=== PATIENT | male | born 1945 | race Caucasian/White ===

== ENCOUNTER 2017-02-05 17:08 | Inpatient (IN) | payer MEDICARE, OTHER ==
[~2017-02-05] VITALS: Ht 182.9 cm; Wt 103.6 kg
[2017-02-05 17:14] VITALS: Ht 182.9 cm; Wt 103.6 kg
[2017-02-05] MEDS ORDERED: KETOROLAC 15 MG INJ IV STA (17:34)
[2017-02-05] MEDS ORDERED: SOD CHLORIDE 0.9% 1,000 ML IV STA (17:34)
[2017-02-05] MEDS ORDERED: ASPIRIN 81 MG TAB PO ONE (18:00)
[2017-02-05] MEDS ORDERED: [UNRECOGNIZED DRUG - OTHER] IV ONE (18:00)
[2017-02-05] MEDS ORDERED: PYRIDOSTIGMINE 60 MG TAB PO ONE (18:00)
[2017-02-05 18:02] LABS: BASOPHILS % 0.3 % (0.0-2.0); EOSINOPHILS # 0.1 10^3/ul (0.0-0.5); EOSINOPHILS % 1.9 % (0.0-7.0); HEMATOCRIT 43.3 % (42.0-52.0); HEMOGLOBIN 14.9 g/dl (14.0-18.0); LYMPHOCYTES # 1.4 10^3/ul (0.8-2.9); LYMPHOCYTES % 24.2 % (15.0-51.0); MEAN CORPUSCULAR HGB CONC 34.4 g/dl (32.0-37.0); MEAN CORPUSCULAR VOLUME 90.2 fl (82.0-101.0); MEAN PLATELET VOLUME 8.8 fl (7.4-10.4); MONOCYTE # 0.7 10^3/ul (0.3-0.9); MONOCYTES % 12.3 % (0.0-11.0); NEUTROPHIL # 3.6 10^3/ul (1.6-7.5); PLATELET COUNT 197 10^3/UL (140-415); RED CELL DISTRIBUTION WIDTH 13.6 % (11.5-14.5); WHITE BLOOD COUNT 5.9 10^3/ul (4.8-10.8)
[2017-02-05 18:32] LABS: AADO2 Arterial 76.8 mmHg (7.0-24.0); Allen Test ACCEPTAB; Arterial Base Excess 3.6 mmol/L (-3.0-3); Arterial COHb 0.2 % (0.0-3.0); Arterial HCO3 29.1 mmol/L (22.0-26.0); Arterial MetHb 0.3 % (0.0-1.5); Arterial Total Hemglobin 15.3 g/dl (12.0-18.0); MODE NASAL CANNULA
[2017-02-05 18:36] LABS: INR 0.89; PT RATIO 0.9
[2017-02-05 18:40] LABS: ALBUMIN 3.8 g/dl (3.3-4.9); ALBUMIN/GLOBULIN RATIO 1.18; BILIRUBIN,INDIRECT 0.3 mg/dl (0-1.1); BILIRUBIN,TOTAL 0.3 mg/dl (0.2-1.3); CALCIUM 9.2 mg/dl (8.4-10.2); CREATININE 0.9 mg/dl (0.61-1.24); POTASSIUM 4.5 mmol/L (3.5-5.1)
--- NOTE | 2017-02-05 18:42 | ERA ---
ER Documentation Chief Complaint Date/Time DATE: 02/05/17 TIME: 18:32 Chief Complaint RA run CP x 3 days, vss, NSR HPI 71-year-old man brought in by EMS from home for complaints of substernal sharp chest pain radiating to the left arm. He does have a history of [place] status post balloon angioplasty. He denies shortness of breath, no cough, no fevers or chills, no vomiting or diarrhea. 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 He states he usually gets periorbital Botox injections, last dose about 4 months ago. Patient was transported here by EMS without further complications. ROS All systems reviewed and are negative except as per history of present illness. Allergies Allergies: Coded Allergies: codeine (Verified Allergy, Unknown, NAUSEA /VOMIT, 02/05/17) PMhx/Soc Ocular myasthenia gravis, hypertension, coronary artery disease status post SC and balloon angioplasty (patient denies stents), pacemaker, prostate cancer History of Surgery: Yes (pace maker , angiogram, gallbladder) Hx Cardiac Disorders: Yes (htn, SC) Hx Miscellaneous Medical Probl: Yes (myasthenia gravis ) Hx Alcohol Use: No Hx Substance Use: No Hx Tobacco Use: No Smoking Status: Never smoker FmHx Family History: No diabetes Physical Exam Vitals Vital Signs Date Time Temp Pulse Resp B/P Pulse Ox O2 Delivery O2 Flow Rate FiO2 02/05/17 18:19 65 16 110/72 98 Nasal Cannula 2.0 02/05/17 17:14 98.1 80 20 106/60 95 Physical Exam GENERAL: Well-developed, well-nourished, appears dehydrated, afebrile HEENT: Bilateral ptosis and orbicularis oculi weakness, pink conjunctiva, pupils equal round reactive to light, no goiter, no cervical spine deformity NEURO: Alert and oriented 3, pupils equal round reactive to light, no facial asymmetry, able to move upper and lower extremities without difficulty CARDIAC: Regular rate and rhythm, no murmurs rubs or gallops LUNGS: Clear bilaterally no wheezing crackles or stridor ABDOMEN: Soft nontender, no guarding, no rigidity, no rebound, no psoas sign no obturator sign. Normoactive bowel sounds SKIN: Warm and dry to touch, no abrasions, contusions, or hematomas, no lacerations, no ecchymosis, no target lesions, and without ulcers EXTREMITIES: No clubbing cyanosis or edema, calves are bilaterally symmetrical, no Homans sign, no popliteal cord sign. Distal pulses equal and bilateral PSYCH: Normal affect without agitation or irritability Result Diagram: 02/05/17 1740 02/05/17 1740 Results 24 hrs Laboratory Tests Test 02/05/17 17:40 02/05/17 18:17 White Blood Count 5.910^3/ul Red Blood Count 4.8010^6/ul Hemoglobin 14.9g/dl Hematocrit 43.3% Mean Corpuscular Volume 90.2fl Mean Corpuscular Hemoglobin 31.0pg Mean Corpuscular Hemoglobin Concent 34.4g/dl Red Cell Distribution Width 13.6% Platelet Count 90774^3/UL Mean Platelet Volume 8.8fl Neutrophils % 61.0% Lymphocytes % 24.2% Monocytes % 12.3% Eosinophils % 1.9% Basophils % 0.3% Nucleated Red Blood Cells % 0.0/100WBC Neutrophils # 3.610^3/ul Lymphocytes # 1.410^3/ul Monocytes # 0.710^3/ul Eosinophils # 0.110^3/ul Basophils # 0.010^3/ul Nucleated Red Blood Cells # 0.010^3/ul Prothrombin Time 12.0Sec Prothrombin Time Ratio 0.9 INR International Normalized Ratio 0.89 Sodium Level 137mmol/L Potassium Level 4.5mmol/L Chloride Level 93mmol/L Carbon Dioxide Level 31mmol/L Anion Gap 18 Blood Urea Nitrogen 19mg/dl Creatinine 0.90mg/dl Glucose Level 86mg/dl Calcium Level 9.2mg/dl Total Bilirubin 0.3mg/dl Direct Bilirubin 0.00mg/dl Indirect Bilirubin 0.3mg/dl Aspartate Amino Transf (AST/SGOT) 35IU/L Alanine Aminotransferase (ALT/SGPT) 47IU/L Alkaline Phosphatase 81IU/L Troponin I 0.019ng/ml B-Type Natriuretic Peptide 363PG/ML Total Protein 7.0g/dl Albumin 3.8g/dl Globulin 3.20g/dl Albumin/Globulin Ratio 1.18 Lipase 22U/L Blood Gas Specimen Source Blood arterial Arterial Blood Date Drawn 02/05/2017 6:24:50 PM Arterial Blood pH (Temp corrected) 7.409 Arterial Blood pCO2 (Temp correct) 47.1mmhg Arterial Blood pO2 (Temp corrected) 67.3mmHG Arterial Blood HCO3 29.1mmol/L Arterial Blood Base Excess 3.6mmol/L Arterial Blood Oxygen Saturation 93.5mmHG Arnie Test ACCEPTAB Arterial Blood Gas Puncture Site Right Radial Arterial Blood Carboxyhemoglobin 0.2% Arterial Blood Methemoglobin 0.3% Blood Gas A-a O2 Differential 76.8mmHg Oxyhemoglobin Percent 93.0% Total Hemoglobin 15.3g/dl Blood Gas Temperature 37.0C Blood Gas Modality NASAL CANNULA FiO2 28.0% Blood Gas Notified Whom M.D. Blood Gas Notified Time 02/05/2017 6:32:29 PM Current Medications Medications (Trade) Dose Ordered Sig/Antonia Route PRN Reason Start Time Stop Time Status Last Admin Dose Admin Sodium Chloride (NS) 1,000 ml @ 1,000 mls/hr Q1H STAT IV 02/05/17 17:34 02/05/17 18:33 DC 02/05/17 18:39 Aspirin (Aspirin) 324 mg ONCE ONCE PO 02/05/17 18:00 02/05/17 18:14 DC 02/05/17 18:16 Ketorolac Tromethamine (Toradol) 15 mg ONCE STAT IV 02/05/17 17:34 02/05/17 18:14 DC 02/05/17 18:17 Pyridostigmine [place] (Mestinon) 60 mg ONCE ONCE PO 02/05/17 18:00 02/05/17 18:00 DC Edrophonium Chloride (Enlon) 1 mg ONCE ONCE IV 02/05/17 18:00 02/05/17 18:00 DC Morphine Sulfate (morphine) 4 mg ONCE STAT IV 02/05/17 19:44 02/05/17 19:46 DC 02/05/17 19:50 Procedures/MDM IV line was established patient was placed on panel monitor rhythm strip revealed a sinus rhythm at about 60 bpm. Patient was afebrile. For complaints of chest pain I administered aspirin 324 mg p.o. for cardioprotective measures. He also received Toradol 15 mg IV 1 for pain. Patient also received 1 L normal saline intravenously, morphine 4 mg IV, Zofran 4 mg IV ABG on low-flow oxygen revealed a pH of 7.41, PCO2 47, PO2 67. Mild hypercapnia. One view chest x-ray performed, read by me there is a pacemaker in the left chest, no acute infiltrates, no pneumothorax. EKG performed, read by me revealed a paced rhythm at 63 bpm, left axis deviation , no concerning ST elevations or depressions noted. CBC was normal, electrolytes normal, liver function tests normal, troponin negative. BNP low. Departure Diagnosis: Primary Impression: Chest pain Qualified Code: R07.9 - Chest pain, unspecified type Additional Impressions: Myasthenia gravis with exacerbation, ocular Dehydration Condition: VISHNU Linda MD Feb 05, 2017 18:42
[2017-02-05 18:51] LABS: TROPONIN-I 0.019 ng/ml (0.00-0.12)
--- NOTE | 2017-02-05 19:20 | RADRPT ---
PROCEDURE: XR Chest. CLINICAL INDICATION: Abdominal pain TECHNIQUE: Anterior chest x-ray. COMPARISON: None. FINDINGS: Dual lead left cardiac pacemaker demonstrates satisfactory position. The lungs are clear. No pleural effusion identified. There is no evidence of pneumothorax. The cardiomediastinal silhouette is unremarkable. The soft tissues are normal. No free air under the hemidiaphragms. Osseous structures are unremarkable. IMPRESSION: 1. No acute disease is seen in the chest. 2. No evidence of bowel perforation. RPTAT: QQ .Brad Serrano MD, MD Date Time Electronically viewed and signed by .Brad Serrano MD, on 02/05/2017 19:20 .M/
[2017-02-05] MEDS ORDERED: morphine 4 MG/ML VIAL IV STA (19:44)
[2017-02-05] MEDS ORDERED: NACL 0.9% 3 ML SYG IV SCH (20:30)
[2017-02-05] MEDS ORDERED: ONDANSETRON 4 MG INJ IV PRN (20:30)
[2017-02-05] MEDS ORDERED: AMLO5TAB4 PO (20:42)
[2017-02-05] MEDS ORDERED: ASPI81TA3 PO (20:43)
[2017-02-05] MEDS ORDERED: CARV3.12 PO (20:43)
[2017-02-05] MEDS ORDERED: LISI10TA2 PO (20:43)
[2017-02-05] MEDS ORDERED: RIVA20TA PO (20:43)
[2017-02-05] MEDS ORDERED: ALPR1TAB7 PO ×2 (20:44→22:32)
[2017-02-05] MEDS ORDERED: ZOLP10TA PO (20:44)
[2017-02-05 21:05] VITALS: PULSE 71
[2017-02-05 22:00] VITALS: BP 128/78; RESP 19
[2017-02-05] MEDS ORDERED: LISI40TA9 PO (22:32)
[2017-02-05] MEDS ORDERED: NITR0.4T6 SL (22:32)
[2017-02-05] MEDS ORDERED: PANT40TA4 PO (22:32)
[2017-02-05] MEDS ORDERED: CARV12.579 PO (22:32)
[2017-02-05] MEDS ORDERED: DOCU100T9 PO (22:32)
[2017-02-05] MEDS ORDERED: ALPR2TAB7 PO (22:36)
[2017-02-05] MEDS ORDERED: AMLO-147 PO (22:37)
[2017-02-05] MEDS: SOD CHLORIDE 0.9% 1,000 ML IV SCH (22:47)
[2017-02-05] MEDS: ALPRAZOLAM 1 MG TAB PO PRN (22:47)
[2017-02-05] MEDS ORDERED: ZOLPIDEM 5 MG TAB PO PRN (23:00)
[2017-02-06] VITALS (14 sets, daily range): BP systolic 107–136; BP diastolic 61–77; PULSE 59–111; RESP 16–20
--- NOTE | 2017-02-06 04:10 | HP ---
Date/Time of Note Date/Time of Note DATE: 02/06/17 TIME: 03:07 Assessment/Plan VTE Prophylaxis VTE Prophylaxis Intervention: SCD's Lines/Catheters IV Catheter Type (from Nrs): Saline Lock Assessment/Plan Chief Complaint/Hosp Course This is a 71-year-old male being admitted to the telemetry floor for: #1 chest pain: Rule out ACS. Will trend troponins. Check 2D echocardiogram. Consult cardiology. Morphine as needed, I will at this time hold his beta- kimberly for the time being until we can confirm his myasthenia gravis status. EKG paced rhythm at 63 bpm, left axis deviation, no concerning ST elevations or depressions noted. His BNP is slightly elevated at 363 however there are no signs of any clinical volume overload at this time, again we will obtain a 2D echocardiogram to further evaluate #2 confusion: I do feel the patient is confused and providing a poor history of the past few days. In light of my physical exam where he does report feeling weak, and he also reported falling off a ladder and there is a bruising on his right eyelid I would like to get a CAT scan of the abdomen. I will also start him on Mestinon for the time being until he can be seen by neurology regarding his myasthenia gravis. Further imaging studies may need to be done, though there is also possibility this patient may be displaying symptoms of memory loss secondary to possibly underlying dementia/Alzheimer's. #3 ocular myasthenia gravis: Patient does have abnormal eye movements, however he also does display an irregular lip behavior when he speaking and patient also reports that he also feels weak a lot of times. He is not on any oral medications on his medical reconciliation he denies taking any medications for his myasthenia gravis orally. He does reports that he gets Botox injections in his eye. At the current time though I do not feel like he is in acute myasthenic crisis, I do feel that with his poor history that he has provided at the current time I will continue the Mestinon that was provided to him in the ED. I will give him for a period of 1 day until he can have neurology see the patient.. I will obtain a CAT scan of the head. I will also continue to monitor his respiratory status. He did have an ABG performed in the ED that did show a PO2 of 67 for which she was put on a BiPAP with improvement in that arm was put on nasal cannula. Will continue to monitor his respiratory status and order ABG in the a.m. The patient denies smoking he does have an elevated bicarb and ABG which could put him in the picture of having COPD however he denies that history. #4 atrial fibrillation: At the current time he is not paced rhythm on his EKG and telemetry. At the current time we will continue his Xarelto. #5 hypertension: Continue patient's home medications however we will hold the beta-kimberly at this time. #6 social condition: Patient does report that he does not have anyone in terms of immediate family as his and his son have as well as his siblings and parents. He lives by himself. At the current time I will consult social work to see if we can help him gain access to an assisted living facility or [facility]. We will also try to obtain past medical records if possible. #7 DVT and GI prophylaxis: SCDs, Protonix Further treatment strategy will be implemented as per the clinical course Problems: HPI/ROS Admit Date/Time Admit Date/Time Feb 05, 2017 at 19:14 Hx of Present Illness Chief complaint: Chest pain This is a 71-year-old man brought in by EMS from home for complaints of substernal sharp chest pain radiating to the left arm. History was obtained from the patient well as from the ED physician documentation, there appears to be some discrepancies in the story which leads me to believe this patient is a poor historian. Apparently the patient does does have a history of [place] status post balloon angioplasty. He denies shortness of breath, no cough, no fevers or chills, no vomiting or diarrhea. 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 He states he usually gets periorbital Botox injections, last dose about 4 months ago. Patient was transported here by EMS without further complications. Upon further questioning from me patient states that he was on a ladder and fell off the ladder and then was taken to the hospital a few days ago and then he was sent to rehab. And was at rehab that he experienced chest pain and then was brought here. When asked which hospital he states [facility] however this appears to be his first admission here based on the EMR. He is not in any respiratory distress or struggling to verbalize during my examination, the patient does state that he does feel tired at times. When asked about if he is taking any medications orally for his myasthenia gravis he denies any, he does state that he takes some drops for his ocular myasthenia gravis however there are none of those medications are on his med reconciliation. Also of note patient is on beta-blockers on his med reconciliation which are known to exacerbate myasthenia gravis. At the current time though I do not feel that the patient is in a myasthenic crisis. Patient also states that he lives by himself his previously as well as his son. He does state that it is difficult for him to live with himself. And he would like to see if he can get into an assisted living. Allergies: Codeine Indications: See REHAN MICHEL Const: As per HPI Eyes : No pain discharge or redness or change in visual acuity ENT: No pain, sore throat, congestion, congestion, dysphagia or discharge Respiratory: As per HPI Cardiovascular: As per HPI GI : no change in appetite, abdominal pain, nausea, vomiting, diarrhea, constipation, or change in the color his stool Genitourinary: No dysuria, hematuria, flank pain , discharge or CVA tenderness Musculoskeletal: No joint pain, back pain, neck pain, restricted range of motion in neck or joints Skin: No rash, bruising or hives Neuro: As per HPI Endocrine: No polyuria, polydipsia, temperature intolerance Psych: No hallucination, depression, anxiety or suicidal ideation PMH/Family/Social Past Medical History Ocular myasthenia gravis?, Atrial fibrillation, hypertension, prostate cancer, previous history of [place], coronary artery disease Past Surgical History Right knee replacement, previous history of stenting and balloon angioplasty, pacemaker placement Family History Significant Family History: other (Mom: Brain tumor) Social History Alcohol Use: sober Smoking Status: Never smoker Drug Use: none Exam/Review of Systems Vital Signs Vitals Vital Signs Date Time Temp Pulse Resp B/P Pulse Ox O2 Delivery O2 Flow Rate FiO2 02/06/17 00:17 66 02/06/17 00:00 98.2 18 115/61 93 02/05/17 21:00 Nasal Cannula 2.0 Intake and Output 8/12/17 8/12/17 8/13/17 15:00 23:00 07:00 Intake Total 1000 ml Balance 1000 ml Exam Exam General: Patient was lying in bed sleeping on initial encounter and he was easily arousable. Patient was not displaying any respiratory distress and he was not having any difficulty forming sentences. HEENT: Atraumatic, normocephalic. The pupils are equal, round and reactive. Extraocular motor are intact, bruising at the right lower eyelid Neck: Supple with full range of motion. No rigidity or meningismus Chest: Nontender Lungs: Clear to auscultation bilaterally no crackles rales or wheezing Heart: Normal S1-S2, Regular rhythm and rate. Abdomen: Soft , nontender, nondistended , bowel sounds are present. No guarding no rebound tenderness , No masses or organomegaly. No costovertebral temporal angle mass Extremities: Normal to inspection, no edema no cyanosis Neurologic: Normal mental status, speech normal, cranial nerves II to XII intact , no focal weaknesses on exam. Patient is observed to blink his eyes and repetitive manner, he does have some irregular lip movement while speaking. Additional Comments PROCEDURE: XR Chest. CLINICAL INDICATION: Abdominal pain TECHNIQUE: Anterior chest x-ray. COMPARISON: None. FINDINGS: Dual lead left cardiac pacemaker demonstrates satisfactory position. The lungs are clear. No pleural effusion identified. There is no evidence of pneumothorax. The cardiomediastinal silhouette is unremarkable. The soft tissues are normal. No free air under the hemidiaphragms. Osseous structures are unremarkable. IMPRESSION: 1. No acute disease is seen in the chest. 2. No evidence of bowel perforation. RPTAT: QQ .Brad Serrano MD, MD Date Time Electronically viewed and signed by .Brad Serrano MD, on 02/05/2017 19: 20 .M/ CC: VISHNU SPRINGER MD EKG: paced rhythm at 63 bpm, left axis deviation, no concerning ST elevations or depressions noted. as per ed physician documentation. Labs Result Diagram: 02/05/17 1740 02/05/17 1740 Medications Medications Current Medications Sodium Chloride (NS) 1,000 ml @ 75 mls/hr [id number] IV Last administered on 02/05 22:47; Admin Dose 75 MLS/HR; Start 02/05/17 at 20:17 Ondansetron HCl (Zofran Inj) 4 mg Q6H PRN IV NAUSEA AND/OR VOMITING; Start 06/12 at 20:30 Morphine Sulfate (morphine) 2 mg Q4H PRN IV PAIN LEVEL 7-10; Start 02/05/17 at 20:30 Pantoprazole (Protonix Iv) 40 mg DAILY@06 IV ; Start 02/06/17 at 06:00 Alprazolam (Xanax) 2 mg Q8H PRN PO ANXIETY Last administered on 02/05/17 22:47 ; Admin Dose 2 MG; Start 02/05/17 at 23:00 Zolpidem Tartrate (Ambien) 10 mg HS PRN PO INSOMNIA Last administered on 23:39; Admin Dose 10 MG; Start 02/05/17 at 23:00 ZEN MARIN Feb 06, 2017 03:18
[2017-02-06] MEDS ORDERED: DOCUSATE SODIUM 100 MG CAP PO PRN (04:30)
[2017-02-06] MEDS ORDERED: ALPRAZOLAM 2 MG PO PRN (04:30)
[2017-02-06] MEDS ORDERED: PANTOPRAZOLE 40 MG INJ IV SCH (06:00)
[2017-02-06] MEDS: PYRIDOSTIGMINE 60 MG TAB PO SCH ×6 (06:01→21:35)
[2017-02-06 06:02] LABS: AADO2 Arterial 33.1 mmHg (7.0-24.0); Allen Test ACCEPTAB; Arterial Base Excess 4.2 mmol/L (-3.0-3); Arterial COHb 0.4 % (0.0-3.0); Arterial Fraction of Oxyhgb 91.9 % (93.0-99.0); Arterial HCO3 29.1 mmol/L (22.0-26.0); Arterial MetHb 0.2 % (0.0-1.5); Arterial Total Hemglobin 15.1 g/dl (12.0-18.0); MODE ROOM AIR
[2017-02-06 07:10] LABS: BASOPHILS % 0.2 % (0.0-2.0); EOSINOPHILS # 0.1 10^3/ul (0.0-0.5); EOSINOPHILS % 2.2 % (0.0-7.0); HEMATOCRIT 40.9 % (42.0-52.0); HEMOGLOBIN 13.6 g/dl (14.0-18.0); LYMPHOCYTES # 1.2 10^3/ul (0.8-2.9); LYMPHOCYTES % 21.1 % (15.0-51.0); MEAN CORPUSCULAR HGB CONC 33.3 g/dl (32.0-37.0); MEAN CORPUSCULAR VOLUME 90.1 fl (82.0-101.0); MEAN PLATELET VOLUME 8.9 fl (7.4-10.4); MONOCYTE # 0.6 10^3/ul (0.3-0.9); MONOCYTES % 9.5 % (0.0-11.0); NEUTROPHIL # 3.9 10^3/ul (1.6-7.5); NEUTROPHILS % 66.8 % (39.0-77.0); PLATELET COUNT 183 10^3/UL (140-415); RED BLOOD COUNT 4.54 10^6/ul (4.70-6.10); RED CELL DISTRIBUTION WIDTH 13.9 % (11.5-14.5); WHITE BLOOD COUNT 5.8 10^3/ul (4.8-10.8)
[2017-02-06 07:34] LABS: TROPONIN-I 0.025 ng/ml (0.00-0.12)
[2017-02-06 07:36] LABS: CK-MB 1.05 ng/ml (0.0-2.4)
[2017-02-06 07:47] LABS: ALBUMIN 3.2 g/dl (3.3-4.9); ALBUMIN/GLOBULIN RATIO 1.28; BILIRUBIN,INDIRECT 0.5 mg/dl (0-1.1); BILIRUBIN,TOTAL 0.5 mg/dl (0.2-1.3); CALCIUM 8.6 mg/dl (8.4-10.2); CHOL/HDL RATIO 2.6 RATIO; CREATININE 0.87 mg/dl (0.61-1.24); POTASSIUM 4.2 mmol/L (3.5-5.1); TOTAL PROTEIN 5.7 g/dl (6.1-8.1)
[2017-02-06 08:13] LABS: THYROID STIMULATING HORMONE 0.832 MIU/L (0.465-4.680)
[2017-02-06] MEDS: morphine 2 MG INJ IV PRN ×3 (08:19→17:51)
[2017-02-06] MEDS: ASPIRIN 81 MG TAB PO SCH (08:20)
[2017-02-06 08:40] LABS: ADD UMIC NO; UR ASCORBIC ACID NEGATIVE (NEGATIVE); UR BILIRUBIN (Dip) NEGATIVE (NEGATIVE); UR BLOOD (Dip) NEGATIVE (NEGATIVE); UR CLARITY CLEAR (CLEAR); UR COLOR YELLOW (YELLOW); UR GLUCOSE (Dip) NEGATIVE (NEGATIVE); UR KETONES (Dip) NEGATIVE (NEGATIVE); UR LEUKOCYTE ESTERASE (Dip) NEGATIVE Leu/ul (NEGATIVE); UR NITRITE (Dip) NEGATIVE (NEGATIVE); UR SPECIFIC GRAVITY (Dip) 1.008 (1.003-1.030); UR TOTAL PROTEIN (Dip) NEGATIVE (NEGATIVE); UR UROBILINOGEN (Dip) NEGATIVE (NEGATIVE)
[2017-02-06] MEDS: LISINOPRIL 20 MG TAB PO SCH (09:00)
[2017-02-06] MEDS: AMLODIPINE 10 MG TAB PO SCH (09:00)
[2017-02-06] MEDS: SOD CHLORIDE 0.9% 1,000 ML IV SCH ×2 (09:37→13:41)
[2017-02-06] MEDS: ALPRAZOLAM 1 MG TAB PO PRN ×2 (09:49→19:18)
--- NOTE | 2017-02-06 11:35 | RADRPT ---
PROCEDURE: CT Brain without. CLINICAL INDICATION: Fall from ladder, facial bruising. TECHNIQUE: A CT of the brain was performed on multidetector high-resolution CT scanner utilizing a xial sections from the skull base through the vertex without contrast. The scan was reviewed in sof t tissue brain and high frequency resolution bone algorithm windows. Images were reviewed on a high -resolution PACS workstation. One or more the following does reduction techniques were utilized: Aut omated exposure control, adjustment of the mA/ or kV according to patient's size, or use of iterativ e reconstruction technique. The exam CTDI = 50.61 mGy and the DLP = 817.78 mGy-cm. COMPARISON: None available. FINDINGS: The ventricles and sulci are mildly prominent indicative of volume loss. There is no intracranial h emorrhage, mass effect or midline shift. No abnormal intra-axial or extra-axial fluid collections a re seen. The mendez/white matter differentiation is preserved. There are mild scattered foci of hypoattenuation in the white matter, which are nonspecific in etiol ogy but likely reflect chronic small vessel ischemic changes. There are mild intracranial vascular calcifications consistent with atherosclerosis. The visualized paranasal sinuses are essentially diana ar. IMPRESSION: 1. No acute intracranial hemorrhage, transcortical infarction or mass effect. 2. Mild intracranial atherosclerosis and chronic small vessel ischemic changes. 3. Mild generalized cerebral volume loss. RPTAT: QQ .Delio Carver MD, MD Date Time Electronically viewed and signed by .Delio Carver MD, MD on 02/06/2017 11:35 .N/
[2017-02-06 13:11] LABS: TROPONIN-I 0.014 ng/ml (0.00-0.12)
[2017-02-06 13:14] LABS: CK-MB 1.17 ng/ml (0.0-2.4)
--- NOTE | 2017-02-06 15:21 | RADRPT ---
Echocardiogram Report Patient Name: BANDAR STUBBS Gender: Male Date: 1945 Study Date: 06-Feb-2017 Animal Feeder: Home [facility] Location: [id number] Ref. Physician: ZEN MARIN Quality: Adequate Procedures: Transthoracic echocardiogram with complete 2D, M-Mode, and doppler examination. Indications: Chest Pain. 2D/M Mode Doppler Measurement Value Normal Ranges Measurement Value Normal Ranges LVIDd 2D 4.7 3.5 - 5.6 cm MAGALI Vmax 1.0 cm2 LVIDs 2D 3.5 2.1 - 4.1 cm AV Peak Phong 2.2 m/sec FS 2D 24.8 % AV Peak PG 20.0 mmHg LVPWd 2D 1.5 0.6 - 1.1 cm LVOT Peak Phong 0.9 m/sec IVSd 2D 1.5 0.6 - 1.1 cm LVOT Peak PG 3.0 mmHg IVS/LVPW 2D 1.0 MV E Peak Phong 0.8 m/sec AoR Diam 2D 3.3 2.0 - 3.7 cm MV A Peak Phong 1.0 m/sec LA/Ao 2D 1 0 - 1 MV E/A 0.8 EDV 2D 104.0 cm3 MV Decel Time 292 msec ESV 2D 44.4 cm3 MV E/A 0.8 LA Dimen 2D 4.1 2.3 - 4.0 cm TR Peak Phong 2.3 m/sec LVOT Diam 1.8 cm TR Peak PG 21.0 mmHg LVOT Area 2.5 cm2 RVSP 29.0 mmHg Findings Left Ventricle: Normal left ventricular cavity size. Moderate concentric left ventricular hypertrophy. Mild global left ventricular systolic dysfunction. Ejection fraction is visually estimated at 45 %. Tissue Doppler/Mitral Doppler indices are consistent with impaired relaxation (Stage I diastolic dysfunction). Right Ventricle: Normal right ventricular size. Normal right ventricular systolic function. Pacemaker right heart. Left Atrium: There is mild enlargement of left atrium. Right Atrium: The right atrium is normal in size. Mitral Valve: Mitral valve leaflets appear moderately thickened. Mild mitral annular calcification. Trace mitral regurgitation. Aortic Valve: Aortic sclerosis without stenosis. Tricuspid Valve: Normal appearance of the tricuspid valve. Estimated peak PA systolic pressure 29 mmHg. There is mild tricuspid regurgitation. Pulmonic Valve: Pulmonic valve not well visualized. There is trace pulmonic regurgitation. Pericardium: Normal pericardium with no significant pericardial effusion. Aorta: Normal aortic root. IVC: Normal size and poor respiratory collapse consistent with elevated right atrial pressure. Conclusions 1.Normal left ventricular cavity size. Moderate concentric left ventricular hypertrophy. Mild global left ventricular systolic dysfunction. Ejection fraction is visually estimated at 45 %. Tissue Doppler/Mitral Doppler indices are consistent with impaired relaxation (Stage I diastolic dysfunction). 2.Normal right ventricular size. Normal right ventricular systolic function. Pacemaker right heart. 3.Mitral valve leaflets appear moderately thickened. Mild mitral annular calcification. Trace mitral regurgitation. 4.Aortic sclerosis without stenosis. 5.Normal appearance of the tricuspid valve. Estimated peak PA systolic pressure 29 mmHg. There is mild tricuspid regurgitation. 6.Normal pericardium with no significant pericardial effusion. Electronically Signed By: Francisco Correa 06-Feb-2017 15:20:38 -0700 Patient Name: BANDAR STUBBS Study Date: 06-Feb-2017 [id number]
--- NOTE | 2017-02-06 15:52 | CONS ---
Date/Time of Note Date/Time of Note DATE: 02/06/17 TIME: 15:48 Assessment/Plan Assessment/Plan Additional Assessment/Plan Atypical chest pain CAD s/p MS s/p PTCA w/o stenting Atrial fibrillation s/p PPM Hypertension Dyslipidemia Prostate cancer s/p chemo, s/p radiation, s/p Proctectomy He has been ruled out for ACS with serial negative troponin. Echo shows mild reduced systolic function with pacemaker leads Recommend Tricia scan to r/o for myocardial ischemia Continue Norvasc and lisinopril Continue Xarelto Continue Protonix Consultation Date/Type/Reason Admit Date/Time Feb 05, 2017 at 19:14 Initial Consult Date Exam/Review of Systems Vital Signs Vitals Vital Signs Date Time Temp Pulse Resp B/P Pulse Ox O2 Delivery O2 Flow Rate FiO2 02/06/17 12:22 61 02/06/17 11:58 97.8 16 107/63 92 02/06/17 06:10 3.0 02/05/17 21:00 Nasal Cannula Intake and Output 02/05/17 02/05/17 02/06/17 15:00 23:00 07:00 Intake Total 1100 ml 738 ml Balance 1100 ml 738 ml Exam Constitutional: alert, oriented Psych: no complaints Head: atraumatic, normocephalic Neck: non-tender, supple Respiratory: clear to auscultation Cardiovascular: regular rate and rhythm Gastrointestinal: nl liver, spleen, non-tender, soft Extremities: normal pulses Results Result Diagram: 02/06/17 0631 02/06/17 0631 Results 24 hrs Laboratory Tests Test 02/05/17 17:40 02/05/17 18:17 02/06/17 04:10 02/06/17 06:00 White Blood Count 5.9 Red Blood Count 4.80 Hemoglobin 14.9 Hematocrit 43.3 Mean Corpuscular Volume 90.2 Mean Corpuscular Hemoglobin 31.0 Mean Corpuscular Hemoglobin Concent 34.4 Red Cell Distribution Width 13.6 Platelet Count 197 Mean Platelet Volume 8.8 Neutrophils % 61.0 Lymphocytes % 24.2 Monocytes % 12.3 H Eosinophils % 1.9 Basophils % 0.3 Nucleated Red Blood Cells % 0.0 Neutrophils # 3.6 Lymphocytes # 1.4 Monocytes # 0.7 Eosinophils # 0.1 Basophils # 0.0 Nucleated Red Blood Cells # 0.0 Prothrombin Time 12.0 L Prothrombin Time Ratio 0.9 INR International Normalized Ratio 0.89 Sodium Level 137 Potassium Level 4.5 Chloride Level 93 L Carbon Dioxide Level 31 Anion Gap 18 H Blood Urea Nitrogen 19 Creatinine 0.90 Glucose Level 86 Calcium Level 9.2 Total Bilirubin 0.3 Direct Bilirubin 0.00 Indirect Bilirubin 0.3 Aspartate Amino Transf (AST/SGOT) 35 Alanine Aminotransferase (ALT/SGPT) 47 Alkaline Phosphatase 81 Troponin I 0.019 B-Type Natriuretic Peptide 363 H Total Protein 7.0 Albumin 3.8 Globulin 3.20 Albumin/Globulin Ratio 1.18 Lipase 22 L Blood Gas Specimen Source Blood arterial Blood arterial Arterial Blood Date Drawn 02/05/2017 6:24:50 PM 02/06/2017 5:55:23 AM Arterial Blood pH (Temp corrected) 7.409 7.433 Arterial Blood pCO2 (Temp correct) 47.1 H 44.6 Arterial Blood pO2 (Temp corrected) 67.3 L 63.2 L Arterial Blood HCO3 29.1 H 29.1 H Arterial Blood Base Excess 3.6 H 4.2 H Arterial Blood Oxygen Saturation 93.5 L 92.5 L Arnie Test ACCEPTAB ACCEPTAB Arterial Blood Gas Puncture Site Right Radial Right Radial Arterial Blood Carboxyhemoglobin 0.2 0.4 Arterial Blood Methemoglobin 0.3 0.2 Blood Gas A-a O2 Differential 76.8 H 33.1 H Oxyhemoglobin Percent 93.0 91.9 L Total Hemoglobin 15.3 15.1 Blood Gas Temperature 37.0 37.0 Blood Gas Modality NASAL CANNULA ROOM AIR FiO2 28.0 21.0 Blood Gas Notified Whom M.D. MM Blood Gas Notified Time 02/05/2017 6:32:29 PM 02/06/2017 6:02:22 AM Urine Color YELLOW Urine Clarity CLEAR Urine pH 6.0 Urine Specific [place] 1.008 Urine Ketones NEGATIVE Urine Nitrite NEGATIVE Urine Bilirubin NEGATIVE Urine Urobilinogen NEGATIVE Urine Leukocyte Esterase NEGATIVE Urine Hemoglobin NEGATIVE Urine Glucose NEGATIVE Urine Total Protein NEGATIVE Blood Gas Actual Respiration Rate 20 Test 02/06/17 06:31 02/06/17 12:28 White Blood Count 5.8 Red Blood Count 4.54 L Hemoglobin 13.6 L Hematocrit 40.9 L Mean Corpuscular Volume 90.1 Mean Corpuscular Hemoglobin 30.0 Mean Corpuscular Hemoglobin Concent 33.3 Red Cell Distribution Width 13.9 Platelet Count 183 Mean Platelet Volume 8.9 Neutrophils % 66.8 Lymphocytes % 21.1 Monocytes % 9.5 Eosinophils % 2.2 Basophils % 0.2 Nucleated Red Blood Cells % 0.0 Neutrophils # 3.9 Lymphocytes # 1.2 Monocytes # 0.6 Eosinophils # 0.1 Basophils # 0.0 Nucleated Red Blood Cells # 0.0 Sodium Level 140 Potassium Level 4.2 Chloride Level 99 Carbon Dioxide Level 30 Anion Gap 15 Blood Urea Nitrogen 20 Creatinine 0.87 Glucose Level 81 Hemoglobin A1c 5.4 Calcium Level 8.6 Total Bilirubin 0.5 Direct Bilirubin 0.00 Indirect Bilirubin 0.5 Aspartate Amino Transf (AST/SGOT) 39 Alanine Aminotransferase (ALT/SGPT) 50 Alkaline Phosphatase 85 Creatine Kinase 44 40 Creatine Kinase Index 2.4 2.9 Creatinine Kinase MB (Mass) 1.05 1.17 Troponin I 0.025 0.014 Total Protein 5.7 #L Albumin 3.2 L Globulin 2.50 Albumin/Globulin Ratio 1.28 Triglycerides Level 55 Cholesterol Level 126 LDL Cholesterol, Calculated 67 HDL Cholesterol 48 Cholesterol/HDL Ratio 2.6 Thyroid Stimulating Hormone (TSH) 0.832 Medications Medications Current Medications Sodium Chloride (NS) 1,000 ml @ 75 mls/hr [id number] IV Last administered on 02/06 13:41; Admin Dose 75 MLS/HR; Start 02/05/17 at 20:17 Ondansetron HCl (Zofran Inj) 4 mg Q6H PRN IV NAUSEA AND/OR VOMITING; Start 06/12 at 20:30 Morphine Sulfate (morphine) 2 mg Q4H PRN IV PAIN LEVEL 7-10 Last administered on 02/06/17 13:41; Admin Dose 2 MG; Start 02/05/17 at 20:30 Pantoprazole (Protonix Iv) 40 mg DAILY@06 IV Last administered on 02/06/17 06: 01; Admin Dose 40 MG; Start 02/06/17 at 06:00 Alprazolam (Xanax) 2 mg Q8H PRN PO ANXIETY Last administered on 02/06/17 09:49 ; Admin Dose 2 MG; Start 02/05/17 at 23:00 Zolpidem Tartrate (Ambien) 10 mg HS PRN PO INSOMNIA Last administered on 23:39; Admin Dose 10 MG; Start 02/05/17 at 23:00 Pyridostigmine [place] (Mestinon) 30 mg Q4 PO Last administered on 02/06/17 13 :41; Admin Dose 30 MG; Start 02/06/17 at 05:00; Stop 02/07/17 at 04:59 Amlodipine Besylate (Norvasc) 10 mg DAILY PO ; Start 02/06/17 at 09:00 Aspirin (Aspirin) 81 mg DAILY PO Last administered on 02/06/17 08:20; Admin Dose 81 MG; Start 02/06/17 at 09:00 Docusate Sodium (Colace) 100 mg BID PRN PO CONSTIPATION; Start 02/06/17 at 04: 30 Lisinopril (Zestril) 40 mg DAILY PO ; Start 02/06/17 at 09:00 KRYSTAL JOSE M.D. Feb 06, 2017 15:52
--- NOTE | 2017-02-06 16:09 | PN ---
Date/Time of Note Date/Time of Note DATE: 02/06/17 TIME: 15:58 Assessment/Plan VTE Prophylaxis VTE Prophylaxis Intervention: other (ATC) Lines/Catheters IV Catheter Type (from Nrsg): Saline Lock Assessment/Plan Assessment/Plan 71 yo M with h/o CAD h/o PM placement h/o ?myasthenia gravis presented with chest pain #CP: ruled out for ACS. NM stress tomorrow via cardiology #?myasthenia: consider trying to talk to PCP/outpatient neurologist in AM as Botox is NOT a regular MG treatment to knowledge #dispo: pt with potentially unsafe home situation. CM cs for SNF cont home meds Subjective 24 Hr Interval Summary Free Text/Dictation had some more chest discomfort this AM. Regarding his ?myasthenia? saw someone at ?[facility]? who did Botox around his eyes?? Exam/Review of Systems Vital Signs Vitals Vital Signs Date Time Temp Pulse Resp B/P Pulse Ox O2 Delivery O2 Flow Rate FiO2 02/06/17 12:22 61 02/06/17 11:58 97.8 16 107/63 92 02/06/17 06:10 3.0 02/05/17 21:00 Nasal Cannula Intake and Output 02/05/17 02/05/17 02/06/17 15:00 23:00 07:00 Intake Total 1100 ml 738 ml Balance 1100 ml 738 ml Exam nad no mrg lungs clear abd soft no rashes Results Result Diagram: 02/06/17 0631 02/06/17 0631 Results 24 hrs Laboratory Tests Test 02/05/17 17:40 02/05/17 18:17 02/06/17 04:10 02/06/17 06:00 White Blood Count 5.9 Red Blood Count 4.80 Hemoglobin 14.9 Hematocrit 43.3 Mean Corpuscular Volume 90.2 Mean Corpuscular Hemoglobin 31.0 Mean Corpuscular Hemoglobin Concent 34.4 Red Cell Distribution Width 13.6 Platelet Count 197 Mean Platelet Volume 8.8 Neutrophils % 61.0 Lymphocytes % 24.2 Monocytes % 12.3 H Eosinophils % 1.9 Basophils % 0.3 Nucleated Red Blood Cells % 0.0 Neutrophils # 3.6 Lymphocytes # 1.4 Monocytes # 0.7 Eosinophils # 0.1 Basophils # 0.0 Nucleated Red Blood Cells # 0.0 Prothrombin Time 12.0 L Prothrombin Time Ratio 0.9 INR International Normalized Ratio 0.89 Sodium Level 137 Potassium Level 4.5 Chloride Level 93 L Carbon Dioxide Level 31 Anion Gap 18 H Blood Urea Nitrogen 19 Creatinine 0.90 Glucose Level 86 Calcium Level 9.2 Total Bilirubin 0.3 Direct Bilirubin 0.00 Indirect Bilirubin 0.3 Aspartate Amino Transf (AST/SGOT) 35 Alanine Aminotransferase (ALT/SGPT) 47 Alkaline Phosphatase 81 Troponin I 0.019 B-Type Natriuretic Peptide 363 H Total Protein 7.0 Albumin 3.8 Globulin 3.20 Albumin/Globulin Ratio 1.18 Lipase 22 L Blood Gas Specimen Source Blood arterial Blood arterial Arterial Blood Date Drawn 02/05/2017 6:24:50 PM 02/06/2017 5:55:23 AM Arterial Blood pH (Temp corrected) 7.409 7.433 Arterial Blood pCO2 (Temp correct) 47.1 H 44.6 Arterial Blood pO2 (Temp corrected) 67.3 L 63.2 L Arterial Blood HCO3 29.1 H 29.1 H Arterial Blood Base Excess 3.6 H 4.2 H Arterial Blood Oxygen Saturation 93.5 L 92.5 L Arnie Test ACCEPTAB ACCEPTAB Arterial Blood Gas Puncture Site Right Radial Right Radial Arterial Blood Carboxyhemoglobin 0.2 0.4 Arterial Blood Methemoglobin 0.3 0.2 Blood Gas A-a O2 Differential 76.8 H 33.1 H Oxyhemoglobin Percent 93.0 91.9 L Total Hemoglobin 15.3 15.1 Blood Gas Temperature 37.0 37.0 Blood Gas Modality NASAL CANNULA ROOM AIR FiO2 28.0 21.0 Blood Gas Notified Whom M.D. MM Blood Gas Notified Time 02/05/2017 6:32:29 PM 02/06/2017 6:02:22 AM Urine Color YELLOW Urine Clarity CLEAR Urine pH 6.0 Urine Specific [place] 1.008 Urine Ketones NEGATIVE Urine Nitrite NEGATIVE Urine Bilirubin NEGATIVE Urine Urobilinogen NEGATIVE Urine Leukocyte Esterase NEGATIVE Urine Hemoglobin NEGATIVE Urine Glucose NEGATIVE Urine Total Protein NEGATIVE Blood Gas Actual Respiration Rate 20 Test 02/06/17 06:31 02/06/17 12:28 White Blood Count 5.8 Red Blood Count 4.54 L Hemoglobin 13.6 L Hematocrit 40.9 L Mean Corpuscular Volume 90.1 Mean Corpuscular Hemoglobin 30.0 Mean Corpuscular Hemoglobin Concent 33.3 Red Cell Distribution Width 13.9 Platelet Count 183 Mean Platelet Volume 8.9 Neutrophils % 66.8 Lymphocytes % 21.1 Monocytes % 9.5 Eosinophils % 2.2 Basophils % 0.2 Nucleated Red Blood Cells % 0.0 Neutrophils # 3.9 Lymphocytes # 1.2 Monocytes # 0.6 Eosinophils # 0.1 Basophils # 0.0 Nucleated Red Blood Cells # 0.0 Sodium Level 140 Potassium Level 4.2 Chloride Level 99 Carbon Dioxide Level 30 Anion Gap 15 Blood Urea Nitrogen 20 Creatinine 0.87 Glucose Level 81 Hemoglobin A1c 5.4 Calcium Level 8.6 Total Bilirubin 0.5 Direct Bilirubin 0.00 Indirect Bilirubin 0.5 Aspartate Amino Transf (AST/SGOT) 39 Alanine Aminotransferase (ALT/SGPT) 50 Alkaline Phosphatase 85 Creatine Kinase 44 40 Creatine Kinase Index 2.4 2.9 Creatinine Kinase MB (Mass) 1.05 1.17 Troponin I 0.025 0.014 Total Protein 5.7 #L Albumin 3.2 L Globulin 2.50 Albumin/Globulin Ratio 1.28 Triglycerides Level 55 Cholesterol Level 126 LDL Cholesterol, Calculated 67 HDL Cholesterol 48 Cholesterol/HDL Ratio 2.6 Thyroid Stimulating Hormone (TSH) 0.832 Medications Medications Current Medications Sodium Chloride (NS) 1,000 ml @ 75 mls/hr [id number] IV Last administered on 02/06 13:41; Admin Dose 75 MLS/HR; Start 02/05/17 at 20:17 Ondansetron HCl (Zofran Inj) 4 mg Q6H PRN IV NAUSEA AND/OR VOMITING; Start 06/12 at 20:30 Morphine Sulfate (morphine) 2 mg Q4H PRN IV PAIN LEVEL 7-10 Last administered on 02/06/17 13:41; Admin Dose 2 MG; Start 02/05/17 at 20:30 Pantoprazole (Protonix Iv) 40 mg DAILY@06 IV Last administered on 02/06/17 06: 01; Admin Dose 40 MG; Start 02/06/17 at 06:00 Alprazolam (Xanax) 2 mg Q8H PRN PO ANXIETY Last administered on 02/06/17 09:49 ; Admin Dose 2 MG; Start 02/05/17 at 23:00 Zolpidem Tartrate (Ambien) 10 mg HS PRN PO INSOMNIA Last administered on 23:39; Admin Dose 10 MG; Start 02/05/17 at 23:00 Pyridostigmine [place] (Mestinon) 30 mg Q4 PO Last administered on 02/06/17 13 :41; Admin Dose 30 MG; Start 02/06/17 at 05:00; Stop 02/07/17 at 04:59 Amlodipine Besylate (Norvasc) 10 mg DAILY PO ; Start 02/06/17 at 09:00 Aspirin (Aspirin) 81 mg DAILY PO Last administered on 02/06/17 08:20; Admin Dose 81 MG; Start 02/06/17 at 09:00 Docusate Sodium (Colace) 100 mg BID PRN PO CONSTIPATION; Start 02/06/17 at 04: 30 Lisinopril (Zestril) 40 mg DAILY PO ; Start 02/06/17 at 09:00 ERIC BUITRAGO MD Feb 06, 2017 16:09
[2017-02-06] MEDS: RIVAROXABAN 20 MG TABLET PO SCH (17:52)
--- NOTE | 2017-02-06 21:04 | CONS ---
DATE OF ADMISSION: 02/05/2017 DATE OF CONSULTATION: 02/05/2017 REASON FOR CONSULTATION: Chest pain. HISTORY OF PRESENT ILLNESS: Patient is a 71-year-old gentleman who comes in with substernal chest pain. Stated that he felt like an elephant was sitting on his chest. The pain radiated to the left upper extremity, associated with shortness of breath, dizziness and nausea. No syncope. He does complain of palpitations. Denies any orthopnea or PND. The patient has history of coronary artery disease status post angioplasty, but no stenting, about 10 years ago, and has a pacemaker implantation for atrial fibrillation in 2008. PAST MEDICAL HISTORY: 1. Significant for coronary artery disease status post angioplasty without stenting. 2. Paroxysmal atrial fibrillation, status post permanent pacemaker implantation. 3. Hypertension. 4. Dyslipidemia. 5. Prostate cancer status post chemotherapy, status post radiation therapy, status post prostatectomy. PAST SURGICAL HISTORY: 1. Inguinal hernia repair. 2. Cholecystectomy. 3. Prostatectomy. SOCIAL HISTORY: No smoking, alcohol, recreational drugs. ALLERGIES: NONE. MEDICATION: 1. Xarelto. 2. Norvasc. 3. Aspirin. 4. Lisinopril. 5. Protonix. REVIEW OF SYSTEMS: Unremarkable, except as mentioned in HPI. PHYSICAL EXAMINATION: VITAL SIGNS: Temperature is 98.4, heart rate of 72, blood pressure 128/78 mmHg, breathing at 19, saturating 93 percent on 2L of nasal cannula. GENERAL: Patient awake, alert, oriented, in no evident distress. NECK: No JVD or carotid bruit. CARDIAC: Regular rate and rhythm. No murmurs, rubs, or gallops. LUNGS: Clear to auscultation. ABDOMEN: Soft. Bowel sounds present. There is no organomegaly. EXTREMITIES: There is no pedal edema. Peripheral pulses bilaterally. DATA/LABORATORY: The review of 12-lead EKG shows V-paced rhythm at 63 beats per minute. Chest x-ray shows no congestion or infiltrate. CT brain shows no acute intracranial hemorrhage, infarct or mass effect. WBC 5.9, hemoglobin 13.9, hematocrit 40.9, with a platelet of 183. Sodium 140, potassium 4.2, chloride 99, CO2 30, BUN 20, creatinine 8.7. Troponin 1st set 0.019. IMPRESSION AND PLAN: A 71-year-old gentleman with: 1. Atypical chest pain. 2. Coronary artery disease status post angioplasty without stenting. 3. Atrial fibrillation status post permanent pacemaker implantation. 4. Hypertension. 5. Dyslipidemia. 6. Prostate cancer status post chemotherapy, status post radiation, status post prostatectomy. 7. Review of 12-lead EKG shows paced rhythm. In addition, he has been ruled out for acute coronary syndrome with serially negative troponins. Concerning his significant cardiac risk factors and his stress test was more than a year ago, I recommend Lexiscan to rule out reversible ischemia. RECOMMENDATIONS: 1. Stress test to rule out myocardial ischemia. 2. Echocardiogram to assess for structural heart disease. 3. Continue lisinopril and amlodipine. 4. Continue Xarelto. 5. Continue Protonix. 6. Further recommendations after review of the echocardiogram. Dictated By: Francisco Correa MD /iliana/salo /Document#: [id number]
[2017-02-06] MEDS ORDERED: ZOLPIDEM 5 MG TAB PO ONE (22:00)
[2017-02-07] VITALS (10 sets, daily range): BP systolic 129–169; BP diastolic 64–81; PULSE 60–66; RESP 18–20
[2017-02-07] MEDS: PYRIDOSTIGMINE 60 MG TAB PO SCH (02:28)
--- NOTE | 2017-02-07 04:38 | PN ---
DATE: 02/06/2017 SUBJECTIVE DATA: The patient is a 71-year-old male who was admitted with atypical chest pain, coronary artery disease, atrial fibrillation, hypertension, dyslipidemia, prostatic cancer. 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 I got a call about the patient for further evaluation and treatment. The patient has underlying memory disorder, Alzheimer disease for which the patient was admitted and for which I got a call about him. MEDICATIONS:: The patient's current medications include Xarelto 20 mg, Norvasc 10 mg once a day, aspirin 81 mg once a day, Zestril 40 mg once a day, Mestinon 30 mg q.4h, Colace 100 mg twice a day, Xanax 2 mg at night, morphine sulfate 2 mg as needed. OBJECTIVE DATA: The patient is awake, alert, and oriented, following simple commands. Heart with regular rate and rhythm. Lungs with equal breath sounds. Abdomen soft, flat, nontender, nondistended. Cranial nerves: II: Pupils equal on both sides, . III, IV, : Extraocular muscles intact. V: Equal sensation to face. VII: . VIII: Decreased hearing bilaterally. Cranial nerves IX, X: Elevated palate. XI: Elevated shoulder. tongue. 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 Sensation: Go Go Dancer intact. . Temperature, coordination, [id number] testing intact. ASSESSMENT AND PLAN: 1. This is a 71-year-old patient with underlying myasthenia gravis. Will continue the patient on Mestinon as he takes 30 mg q.4h. I will follow up the patient with repetitive nerve stimulations as an outpatient. 2. Atrial fibrillation for which the patient is on Xarelto for stroke prophylaxis and atrial fibrillation. 3. Will follow up the patient with pulmonary function tests for myasthenia gravis. 4. Insomnia. Keep the patient on Xanax 2 mg at night as needed. 5. Again, Thank you for asking me to see the patient with you. Dictated By: Garret Cabral MD /iliana/grey /Document#: [id number]
[2017-02-07] MEDS: ALPRAZOLAM 1 MG TAB PO PRN (08:29)
[2017-02-07] MEDS: ASPIRIN 81 MG TAB PO SCH (08:30)
[2017-02-07] MEDS: AMLODIPINE 10 MG TAB PO SCH (08:30)
[2017-02-07] MEDS: LISINOPRIL 20 MG TAB PO SCH (08:30)
[2017-02-07] MEDS: morphine 2 MG INJ IV PRN ×3 (09:02→16:26)
--- NOTE | 2017-02-07 14:31 | PDOCDIS ---
Discharge Instructions CONDITION Patient Condition: Stable HOME CARE INSTRUCTIONS: Special Diet: Cardiac ASH WASHBURN Feb 07, 2017 14:31
--- NOTE | 2017-02-07 14:45 | DS ---
Date/Time of Note Date/Time of Note DATE: 02/07/17 TIME: 14:39 Discharge Summary Admission/Discharge Info Admit Date/Time Feb 05, 2017 at 19:14 Discharge Date/Time Discharge Diagnosis 1. chest pain: Ruled out for ACS. #2 confusion: Resolved, head CT showed no acute findings. #3 ocular myasthenia gravis: Evaluated by neurology, on Mestinon #4 atrial fibrillation: On Xarelto. #5 hypertension: Continue patient's home medications Patient Condition: Stable Hospital Course 71-year-old man brought in by EMS from home for complaints of substernal sharp chest pain radiating to the left arm. History was obtained from the patient well as from the ED physician documentation, there appears to be some discrepancies in the story which leads me to believe this patient is a poor historian. Apparently the patient does does have a history of ND status post balloon angioplasty. He denied shortness of breath, no cough, no fevers or chills, no vomiting or diarrhea. 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 He states he usually gets periorbital Botox injections, last dose about 4 months ago. Patient was transported here by EMS without further complications. Upon further questioning on admission patient stated that he was on a ladder and fell off the ladder and then was taken to the hospital a few days ago and then he was sent to rehab. And was at rehab that he experienced chest pain and then was brought here. When asked which hospital he states [facility] however this appears to be his first admission here based on the EMR. When asked about if he is taking any medications orally for his myasthenia gravis he denies any, he stated that he takes some drops for his ocular myasthenia gravis however there are none of those medications are on his med reconciliation. Patient also states that he lives by himself his previously as well as his son. He does state that it is difficult for him to live with himself. Patient was admitted and seen by cardiology and neurology teams. He ruled out for acute coronary syndrome. Echocardiogram showed the following: Conclusions 1. Normal left ventricular cavity size. Moderate concentric left ventricular hypertrophy. Mild global left ventricular systolic dysfunction. Ejection fraction is visually estimated at 45 %. Tissue Doppler/Mitral Doppler indices are consistent with impaired relaxation (Stage I diastolic dysfunction). 2. Normal right ventricular size. Normal right ventricular systolic function. Pacemaker right heart. 3. Mitral valve leaflets appear moderately thickened. Mild mitral annular calcification. Trace mitral regurgitation. 4. Aortic sclerosis without stenosis. 5. Normal appearance of the tricuspid valve. Estimated peak PA systolic pressure 29 mmHg. There is mild tricuspid regurgitation. 6. Normal pericardium with no significant pericardial effusion. Patient had less chest pain symptoms. He was also evaluated by neurology team and continued on Mestinon for his history of myasthenia gravis. It was recommended to have nerve stimulation studies performed as an outpatient with the patient's neurologist. Patient is awaiting cardiac stress test today, if the results are negative, he will be discharged to [facility] facility today in improved condition please see printed medical reconciliation sheet for full list of discharge medications. an assisted living facility or retirement. We will also try to obtain past medical records if possible. #7 DVT and GI prophylaxis: SCDs, Protonix Further treatment strategy will be implemented as per the clinical course Home Meds Reported Medications Amlodipine Besylate* (Amlodipine Besylate*) 10 Mg Tablet, 10 MG PO DAILY, #30 TAB 02/05/17 Alprazolam (Alprazolam) 2 Mg Tab.rapdis, 2 MG PO Q8H Y for ANXIETY, TAB 02/05/17 Docusate Sodium (Stool Softener) 100 Mg Tablet, 100 MG PO BID Y for CONSTIPATION , TAB 02/05/17 Pantoprazole (Protonix) 40 Mg Tabec, 40 MG PO DAILY, TAB 02/05/17 Nitroglycerin* (Nitroglycerin* SL) 0.4 Mg Tab.subl, 0.4 MG SL Q5MIN Y for CHEST PAIN, BOTTLE 02/05/17 Carvedilol* (Carvedilol*) 12.5 Mg Tablet, 12.5 MG PO BID, #60 TAB 02/05/17 Lisinopril* (Lisinopril*) 40 Mg Tablet, 40 MG PO DAILY, #30 TAB Hold for SBP <110 or HR <60 02/05/17 Zolpidem Tartrate* (Ambien*) 10 Mg Tablet, 10 MG PO QHS Y for INSOMNIA, TAB 02/05/17 Rivaroxaban* (Xarelto*) 20 Mg Tablet, 20 MG PO WITH DINNER, TAB 02/05/17 Aspirin* (Aspirin* Chew) 81 Mg Tab.chew, 81 MG PO DAILY, TAB.CHEW 02/05/17 Discontinued Reported Medications Alprazolam* (Alprazolam*) 1 Mg Tablet, 2 MG PO Q8H Y for ANXIETY, TAB 02/05/17 Carvedilol* (Coreg*) 3.125 Mg Tablet, 3.125 MG PO BID, #60 TAB 02/05/17 Lisinopril* (Lisinopril*) 10 Mg Tablet, 10 MG PO DAILY, #30 TAB 02/05/17 Amlodipine Besylate* (Norvasc*) 5 Mg Tablet, 10 MG PO DAILY, TAB 02/05/17 Primary Care Provider Care Physician No Primary Time spent on discharge: > 30 minutes ASH WASHBURN Feb 07, 2017 14:45
--- NOTE | 2017-02-07 15:06 | CONS ---
Date/Time of Note Date/Time of Note DATE: 02/07/17 TIME: 15:04 Assessment/Plan Assessment/Plan Additional Assessment/Plan 1. Significant for coronary artery disease status post angioplasty without stenting - Tricia SPECT stress test today. 2. Paroxysmal atrial fibrillation, status post permanent pacemaker implantation - V-paced on tele now. In sinus now. 3. Hypertension - well Rx, con't to follow. 4. Dyslipidemia. 5. Prostate cancer status post chemotherapy, status post radiation therapy, status post prostatectomy. Hemonc follows. Consultation Date/Type/Reason Admit Date/Time Feb 05, 2017 at 19:14 Initial Consult Date 24 HR Interval Summary Free Text/Dictation Tricia SPECT stress test today, V-paced on tele now. In sinus now. ROS: No fever, no chills, no nausea, no vomiting, no diarrhea/constipation No recent weight changes No chest pain, no PND, no orthopnea No dizziness, blurred vision No thirst, no heat or cold intolerance Exam/Review of Systems Vital Signs Vitals Vital Signs Date Time Temp Pulse Resp B/P Pulse Ox O2 Delivery O2 Flow Rate FiO2 02/07/17 12:10 60 02/07/17 11:47 98.5 18 129/72 93 02/07/17 08:00 Nasal Cannula 02/06/17 21:49 2.0 Intake and Output 02/06/17 02/06/17 02/07/17 15:00 23:00 07:00 Intake Total 660 ml Output Total 800 ml Balance -140 ml Exam General: WN/WD/NAD, AOx 3 HEENT: Unicetric/atraumatic/EOMI (follow commands) NECK: JVD elevated, no thyromegaly Lymph: no lymphadenopathy HEART: regular with no S3, II/ systolic murmur at apex LUNGS: Coarse sounds ABD: soft, NT, ND, +BS : Intact Neuro: non focal SKIN: chronic changes EXT: trace edema Results Result Diagram: 02/06/1763002/06/17630 Medications Medications Current Medications Ondansetron HCl (Zofran Inj) 4 mg Q6H PRN IV NAUSEA AND/OR VOMITING; Start 06/12 at 20:30 Morphine Sulfate (morphine) 2 mg Q4H PRN IV PAIN LEVEL 7-10 Last administered on 02/07/17t 13:02; Admin Dose 2 MG; Start 02/05/17 at 20:30 Alprazolam (Xanax) 2 mg Q8H PRN PO ANXIETY Last administered on 02/07/17 08:29 ; Admin Dose 2 MG; Start 02/05/17 at 23:00 Amlodipine Besylate (Norvasc) 10 mg DAILY PO Last administered on 02/07/17 08: 30; Admin Dose 10 MG; Start 02/06/17 at 09:00 Aspirin (Aspirin) 81 mg DAILY PO Last administered on 02/07/17 08:30; Admin Dose 81 MG; Start 02/06/17 at 09:00 Docusate Sodium (Colace) 100 mg BID PRN PO CONSTIPATION; Start 02/06/17 at 04: 30 Lisinopril (Zestril) 40 mg DAILY PO Last administered on 02/07/17 08:30; Admin Dose 40 MG; Start 02/06/17 at 09:00 ALEX SANCHEZ MD Feb 07, 2017 15:06
[2017-02-07] MEDS ORDERED: REGADENOSON 0.4 MG/5 ML SYG ONE (15:26)
--- NOTE | 2017-02-07 16:54 | RADRPT ---
PROCEDURE: Lexiscan myocardial perfusion study CLINICAL INDICATION: 71 -year-old patient complaining of chest pain. TECHNIQUE: Lexiscan 0.4 mg intravenously separate acquisition gated myocardial perfusion SPECT usi ng Tc 99m Myoview 32.3 mCi intravenously at stress and Tc-99m Myoview, 9.0 mCi intravenously at rest was performed using the rest/stress sequence. Poststress Myoview SPECT images were obtained in the supine position. COMPARISON: No prior studies. FINDINGS: Perfusion images reveal a small to moderate size mild to moderate in degree nonreversible perfusion abnormality in the apical and inferior bang. Lexiscan post stress gated SPECT images demonstrate mild hypokinesis of the left ventricle. IMPRESSION: 1. The type and distribution of the scintigraphic abnormalities are most consistent with a small to moderate-sized nonreversible perfusion defect in the apical and inferior bang. 2. Mild hypokinesis of the left ventricle. 3. The left ventricle ejection fraction at stress is 47%. A call report was made to Dr. Moreau at 04:52 p.m. on February 07, 2017. RPTAT: HH .Sandy Yu MD, Date Time Electronically viewed and signed by .Sandy Yu MD, on 02/07/2017 16:54 .L/
[2017-02-07] MEDS: RIVAROXABAN 20 MG TABLET PO SCH (17:25)
[2017-02-07] MEDS ORDERED: hydrALAzine 20 MG INJ IV ONE (20:30)
--- NOTE | 2017-02-08 04:02 | ECORPT ---
DATE OF SERVICE: 02/07/2017 ECHOCARDIOGRAM PROCEDURE: Lexiscan cardiac stress test. REFERRING PHYSICIAN: Lazara Carrasco MD REASON FOR EVALUATION: Chest pain. DESCRIPTION OF PROCEDURE: The patient is RV paced, in sinus rhythm now. He tolerated the injection well. Blood pressure was 100/76. The imaging portion of the dictation is done separately. Dictated By: Ad Moreau MD /iliana/lachelle /Document#: [id number]
--- NOTE | 2017-02-08 08:18 | CONS ---
DATE OF ADMISSION: 02/05/2017 DATE OF CONSULTATION: 02/07/2017 HISTORY OF PRESENT ILLNESS: Patient is a 71-year-old with a past medical history of myasthenia gravis in which the patient is on Mestinon 30 mg every 4 hours, atrial fibrillation with patient on Xarelto. PHYSICAL EXAMINATION: GENERAL: Patient is alert awake, oriented. Following simple commands. HEART: Regular rate and rhythm. LUNGS: Equal breath sounds. ABDOMEN: Soft, relaxed, nondistended. No tenderness. CRANIAL NERVES: II: Pupils equal on both sides, reactive to light. III, IV and : Extraocular muscles intact. No nystagmus. V: Equal sensation to face. VII: Symmetrical face. VIII: Decreased hearing bilaterally. IX, X: Elevates palate. XI: Elevates shoulders, 5/5. XII: Straight tongue. 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 SENSATION: Stocking-glove bilaterally in touch in temperature. ASSESSMENT AND PLAN: 1. The patient is 71 years old with a history of myasthenia gravis. Continue the patient on Mestinon 30 mg every 4 hours as needed. 2. Atrial fibrillation. We will keep the patient on Xarelto as a prophylaxis for atrial fibrillation to avoid stroke. 3. Insomnia. Keep the patient on Xanax 2 mg at night as needed. 4. For myasthenia gravis, follow up the patient with nerve conduction study for repetitive stimulation, as well as pulmonary function tests. Dictated By: Garret Cabral MD /iliana/ayleen /Document#: [id number]
== END 2017-02-07 20:32 | DRG 313 ==
LOC: E/R 17:08 → OBSVTOIN 19:14 → MS4 19:14 → INTOOBSV 19:14 → MS4 02-06 06:57
PROVIDERS: ADMIT Internal Medicine; ATTEND Internal Medicine
DX: R07.89 Other chest pain (principal); I25.2 Old myocardial infarction; G70.01 Myasthenia gravis with (acute) exacerbation; E86.0 Dehydration; I48.0 Paroxysmal atrial fibrillation; I10 Essential (primary) hypertension; E78.5 Hyperlipidemia, unspecified; H02.403 Unspecified ptosis of bilateral eyelids; I25.10 Atherosclerotic heart disease of native coronary artery without angina pectoris; I70.0 Atherosclerosis of aorta; R41.0 Disorientation, unspecified; M79.602 Pain in left arm; Z95.5 Presence of coronary angioplasty implant and graft; Z85.46 Personal history of malignant neoplasm of prostate; Z92.21 Personal history of antineoplastic chemotherapy; Z92.3 Personal history of irradiation; Z90.79 Acquired absence of other genital organ(s); Z79.82 Long term (current) use of aspirin; G47.00 Insomnia, unspecified
CPT/HCPCS: 36415; 36600; 70450; 71010; 78452; 80053; 80061; 81003; 82550; 82553; 82803; 83036; 83690; 83880; 84443; 84484; 85025; 85610; 87081; 93005; 93017; 93306; 96361; 96374; 96375; A9500; A9505; C9113; J0360; J1885; J2270; J2785; J3490; J7030

== ENCOUNTER 2017-04-11 17:32 | Observation (INO) | payer MEDICARE, OTHER ==
[~2017-04-11] VITALS: Ht 182.9 cm; Wt 100.0 kg
[~2017-04-11 17:32] MED LIST: ALPR2TAB7 PO; AMLO-147 PO; ASPI81TA3 PO; CARV12.579 PO; DOCU100T9 PO; LISI40TA9 PO; NITR0.4T32 SL; PANT40TA4 PO; RIVA20TA PO; ZOLP10TA PO
[2017-04-11] MEDS ORDERED: NITROGLYCERIN 50 MG/D5W (PMX) 250 ML IV STA (17:37)
[2017-04-11] MEDS ORDERED: ASPIRIN 81 MG TAB PO STA (17:37)
[2017-04-11 17:38] VITALS: Ht 182.9 cm; Wt 100.0 kg
--- NOTE | 2017-04-11 17:59 | ERA ---
ER Documentation Chief Complaint Date/Time DATE: 04/11/17 TIME: 17:50 Chief Complaint HPI 71-year-old male, history of myasthenia gravis, chronic tremors, atrial fib on Xarelto, coronary artery disease status post PCI, hypertension, dyslipidemia and prostate CA status post prostatectomy, chemotherapy and radiation presents to the ED by rescue ambulance for evaluation of chest pain. At approximately 3 PM today patient had a mechanical trip and fall while walking with his walker and afterwards began complaining of severe, pressure-like, substernal chest pain that radiated to his left shoulder. Patient describes a feeling as if a "elephant is sitting on my chest". Mild shortness of breath shortness of breath and vomiting but denies nausea or diaphoresis. Patient received aspirin 162 mg and sublingual nitroglycerin 3 from paramedics with minimal relief. Denies abdominal pain or back pain. No headache, visual changes, focal weakness or numbness. Denies leg pain or swelling. No fevers or chills. Patient was admitted 02/05/2017 for similar symptoms. He ruled out for LA. Lexiscan study revealed a small to moderate nonreversible perfusion defect in the apical inferior bang. ROS All systems reviewed and are negative except as per history of present illness. Medications Home Meds Active Scripts Carvedilol* (Carvedilol*) 3.125 Mg Tablet, 3.125 MG PO BID, #60 TAB Prov:TONI CHAO MD 04/13/17 Rivaroxaban* (Xarelto*) 20 Mg Tablet, 20 MG PO WITH DINNER, #30 TAB Prov:TONI CHAO MD 04/13/17 Reported Medications Trazodone Hcl* (Trazodone Hcl*) 50 Mg Tablet, 50 MG PO QHS, #30 TAB 04/11/17 Duloxetine Hcl* (Duloxetine Hcl*) 20 Mg Capsule.dr, 40 MG PO DAILY, #30 CAP 04/11/17 Hydrocodone/Acetaminophen ([place] 5-325 Tablet) 1 Each Tablet, 1 EACH PO Q12H, TAB 04/11/17 Amlodipine Besylate* (Amlodipine Besylate*) 10 Mg Tablet, 10 MG PO DAILY, #30 TAB 02/05/17 Alprazolam (Alprazolam) 2 Mg Tab.rapdis, 2 MG PO Q8H Y for ANXIETY, TAB 02/05/17 Pantoprazole (Protonix) 40 Mg Tabec, 40 MG PO DAILY, TAB 02/05/17 Lisinopril* (Lisinopril*) 40 Mg Tablet, 40 MG PO DAILY, #30 TAB Hold for SBP <110 or HR <60 02/05/17 Discontinued Reported Medications Docusate Sodium (Stool Softener) 100 Mg Tablet, 100 MG PO BID Y for CONSTIPATION , TAB 02/05/17 Nitroglycerin* (Nitroglycerin* SL) 0.4 Mg Tab.subl, 0.4 MG SL Q5MIN Y for CHEST PAIN, BOTTLE 02/05/17 Carvedilol* (Carvedilol*) 12.5 Mg Tablet, 12.5 MG PO BID, #60 TAB 02/05/17 Zolpidem Tartrate* (Ambien*) 10 Mg Tablet, 10 MG PO QHS Y for INSOMNIA, TAB 02/05/17 Rivaroxaban* (Xarelto*) 20 Mg Tablet, 20 MG PO WITH DINNER, TAB 02/05/17 Aspirin* (Aspirin* Chew) 81 Mg Tab.chew, 81 MG PO DAILY, TAB.CHEW 02/05/17 Allergies Allergies: Coded Allergies: codeine (Verified Allergy, Unknown, NAUSEA /VOMIT, 04/11/17) PMhx/Soc Reviewed in chart. As per HPI. Patient lives in a boarding care facility and is under hospice care by [facility], [phone]. According to caregiver still full code. History of Surgery: Yes (Left knee replacements, Hernia, cholecystectomy, prostatectomy, Pacemaker, PCI) Anesthesia Reaction: No Hx Neurological Disorder: Yes (Myasthenia gravis) Hx Respiratory Disorders: No Hx Cardiac Disorders: Yes (HTN, LA w/ agioplasty, CAD, Pacemaker, AFIB) Hx Psychiatric Problems: No Hx Miscellaneous Medical Probl: No Hx Alcohol Use: Yes Hx Substance Use: No Hx Tobacco Use: No FmHx Reviewed in chart.No sudden cardiac or stroke. Physical Exam Vitals Vital Signs Date Time Temp Pulse Resp B/P Pulse Ox O2 Delivery O2 Flow Rate FiO2 04/11/17 21:10 86 17 120/91 94 Room Air 04/11/17 20:00 86 19 137/81 94 Room Air 04/11/17 18:25 89 14 131/103 95 Room Air 04/11/17 17:38 98.5 100 20 136/95 98 Physical Exam Const: Alert, moderate distress Head: Atraumatic Eyes: Normal Conjunctiva ENT: Normal External Ears, Nose and Mouth. Neck: Full range of motion.No JVD Resp: Clear to auscultation bilaterally Cardio: Regular rate and rhythm, no murmurs Chest Wall: Nontender. Pacemaker left upper chest wall Abd: Soft, non tender, non distended. Normal bowel sounds Skin: No petechiae or rashes Back: No midline or flank tenderness Ext: No cyanosis, or edema Neur: Awake and alert. Tremulous. Psych: Cooperative. Anxious Result Diagram: 04/13/17 0701 04/13/17 07 Results 24 hrs Laboratory Tests Test 04/11/17 18:00 White Blood Count 10.010^3/ul Red Blood Count 5.8310^6/ul Hemoglobin 17.1g/dl Hematocrit 52.7% Mean Corpuscular Volume 90.4fl Mean Corpuscular Hemoglobin 29.3pg Mean Corpuscular Hemoglobin Concent 32.4g/dl Red Cell Distribution Width 13.2% Platelet Count 46972^3/UL Mean Platelet Volume 9.0fl Neutrophils % 65.3% Lymphocytes % 26.5% Monocytes % 7.4% Eosinophils % 0.3% Basophils % 0.3% Nucleated Red Blood Cells % 0.0/100WBC Neutrophils # 6.510^3/ul Lymphocytes # 2.710^3/ul Monocytes # 0.710^3/ul Eosinophils # 0.010^3/ul Basophils # 0.010^3/ul Nucleated Red Blood Cells # 0.010^3/ul Prothrombin Time 13.0Sec Prothrombin Time Ratio 1.0 INR International Normalized Ratio 0.98 Activated Partial Thromboplast Time 30.7Sec Sodium Level 147mmol/L Potassium Level 4.0mmol/L Chloride Level 103mmol/L Carbon Dioxide Level 30mmol/L Anion Gap 18 Blood Urea Nitrogen 14mg/dl Creatinine 1.05mg/dl Glucose Level 106mg/dl Calcium Level 9.9mg/dl Total Bilirubin 0.7mg/dl Direct Bilirubin 0.00mg/dl Indirect Bilirubin 0.7mg/dl Aspartate Amino Transf (AST/SGOT) 39IU/L Alanine Aminotransferase (ALT/SGPT) 49IU/L Alkaline Phosphatase 93IU/L Troponin I 0.014ng/ml Total Protein 8.2g/dl Albumin 4.5g/dl Globulin 3.70g/dl Albumin/Globulin Ratio 1.21 Current Medications Medications (Trade) Dose Ordered Sig/Antonia Route PRN Reason Start Time Stop Time Status Last Admin Dose Admin Aspirin 162 mg 162 mg ONCE STAT PO 04/11/17 17:37 04/11/17 17:38 DC 04/11/17 19:00 Nitroglycerin/ Dextrose (Nitroglycerin 50 Mg/D5W (Pmx)) 250 ml @ 6 mls/hr ONCE STAT IV 04/11/17 17:37 04/13/17 11:16 DC 04/11/17 18:19 Morphine Sulfate (morphine) 4 mg ONCE STAT IV 04/11/17 18:57 04/11/17 18:58 DC 04/11/17 19:10 Ondansetron HCl (Zofran Inj) 4 mg ONCE STAT IV 04/11/17 18:57 04/11/17 18:58 DC 04/11/17 19:30 Morphine Sulfate (morphine) 4 mg STK-MED ONCE .ROUTE 04/11/17 18:58 04/11/17 18:59 DC Nitroglycerin (Nitroglycerin 2% Oint) 1 inch ONCE ONCE TD 04/11/17 20:00 04/11/17 20:01 DC 04/11/17 20:01 LAB INTERPRETATION: Hypernatremia, otherwise unremarkable. Troponin not elevated. EKG #1: TIME: 17:33. Ventricular paced rhythm at a rate of 117. Occasional PVCs. No sgarbossa criteria for acute ischemia. EP Interpretation: Abnormal EKG. EKG #2: TIME: 17:55. Ventricular paced rhythm rate 106. Occasional PVCs. Unchanged from 02/07/2017. EP interpretation: Abnormal ECG IMAGING: Chest x-ray, portable. Cardiac silhouette is normal. No effusions or infiltrates. Costophrenic angles are clear. No abnormalities of the bony thorax. EP interpretation: Normal chest x-ray. PROCEDURE: CT Brain without contrast. CLINICAL INDICATION: Trauma, headache. TECHNIQUE: A CT of the brain was performed utilizing axial sections from the skull base through the vertex without contrast. Multiplanar re-formations were generated. Images were reviewed on a high-resolution PACS workstation. CTDIvol: 43.27 mGy. DLP: 720.23 mGy-cm. One or more of the following dose reduction techniques were used: - Automated exposure control. - Adjustment of the mA and/or kV according to patient size. - Use of iterative reconstruction technique. COMPARISON: None available FINDINGS: There is mild generalized volume loss. No hydrocephalus is seen. There is no mass effect. No acute intracranial hemorrhage is identified. There is no extra- axial collection. No CT evidence of acute infarction is identified. Chronic lacunar infarctions are identified in the bilateral basal ganglia regions. There is patchy low attenuation in the supratentorial white matter, a nonspecific finding which most likely represents the sequela of mild chronic microvascular ischemic disease. There are mild to moderate atherosclerotic arterial calcifications. There is no significant mucosal disease in the paranasal sinuses. The visualized mastoid air cells are clear. The ossesous structures are unremarkable. The extracranial soft tissues are unremarkable. IMPRESSION: 1. No acute intracranial pathology. 2. Mild generalized volume loss. 3. Chronic lacunar infarctions in the bilateral basal ganglia regions. 4. Mild chronic microvascular ischemic changes. 5. Atherosclerotic arterial calcifications. RPTAT: HTAR .Reji Prescott MD PROCEDURE: CT cervical spine without contrast. CLINICAL INDICATION: Trauma, neck pain. TECHNIQUE: A CT of the cervical spine was performed without intravenous contrast. Coronal and sagittal reformats were generated. CTDIvol: 22.19 mGy. DLP: 474.07 mGy-cm. One or more of the following dose reduction techniques were used: - Automated exposure control. - Adjustment of the mA and/or kV according to patient size. - Use of iterative reconstruction technique. COMPARISON: None. FINDINGS: There is a normal cervical lordosis. There is grade 1 degenerative C2 anterolisthesis and C4 retrolisthesis. The vertebral body heights are maintained. No Q fracture or subluxation is seen. The prevertebral soft tissues are normal. There are moderate to severe neural foraminal narrowings bilaterally at C3-C4 and C4-C5, and on the left at C5-C6. There is mild spinal canal stenosis at C3- C4 and moderate multilevel spinal canal stenosis from C4-C5 through C7-T1. There is mild left carotid bulb calcification. IMPRESSION: 1. No acute fracture or subluxation of the cervical spine. 2. Grade 1 degenerative anterolisthesis and C4 retrolisthesis. 3. Mild spinal canal stenosis at C3-C4 and moderate multilevel spinal canal stenosis from C4-C5 through C7-T1. 4. Moderate to severe neural foraminal narrowings bilaterally at C3-C4 and C4- C5, and on the left at C5-C6. RPTAT: HTAR .Reji Prescott MD Procedures/MDM DOCUMENTS REVIEWED: ED nurse, prior ED, prior records including admission 2016 for chest pain [employer]ISION [employer]KIN-year-old male, history of myasthenia gravis, chronic tremors, atrial fib on Xarelto, coronary artery disease status post PCI , hypertension, dyslipidemia and prostate CA status post prostatectomy, chemotherapy and radiation presents to the ED by rescue ambulance for evaluation of chest pain. Patient with pressure-like chest pain with aspirin intravenous nitroglycerin with minimal relief. IV nitro was subsequently discontinued and nitro paste was applied to the chest wall. Pain decreased with intravenous morphine. No acute ischemic EKG changes and initial troponin is not elevated. Pulmonary embolism was considered but unlikely. Chest x-ray is negative for pneumonia, pneumothorax or congestive heart failure. Possible musculoskeletal pain. Fall with possible head injury and as the patient is anticoagulated CT of the brain was performed to evaluate for hemorrhage, infarct , mass and hydrocephalus which is unremarkable for acute disease. CT of the cervical spine is negative for fracture or subluxation. Considering the patient 's multiple cardiac risk factors, he will be admitted to telemetry for cardiology consultation and further risk stratification. Counseled patient regarding diagnosis, diagnostic results and plan for admission. CALLS/CONSULTS: Time 19:41, Dr. Pringle, Recommends admission to telemetry. PATIENT CARE TRANSITIONED: Time: 19:45, Dr. Pringle. CRITICAL CARE TIME: Due to the high probability of sudden clinically significant hemodynamic and cardiovascular deterioration, this patient with history of coronary artery disease who now presents with pressure-like chest pain required intravenous nitroglycerin drip as well as multiple, frequent reevaluations of vital signs and response to therapy. Additional critical care time was spent in obtaining supplemental history from his boarding care facility and hospice, interpretation of relevant clinical data including labs, EKGs and imaging studies as well as arranging for admission and ongoing care with Dr. Pringle. TOTAL CRITICAL CARE TIME: 35 minutes not including other separately reportable procedures. Departure Diagnosis: Primary Impression: Chest pain Qualified Code: R07.9 - Chest pain, unspecified type Additional Impressions: Presence of stent in coronary artery in patient with coronary artery disease Paroxysmal atrial fibrillation Myasthenia gravis Coarse tremors Condition: Serious MATT ORANTES MD Apr 11, 2017 17:59
[2017-04-11 18:15] LABS: BASOPHILS % 0.3 % (0.0-2.0); EOSINOPHILS % 0.3 % (0.0-7.0); HEMATOCRIT 52.7 % (42.0-52.0); HEMOGLOBIN 17.1 g/dl (14.0-18.0); LYMPHOCYTES # 2.7 10^3/ul (0.8-2.9); LYMPHOCYTES % 26.5 % (15.0-51.0); MEAN CORPUSCULAR HEMOGLOBIN 29.3 pg (29.0-33.0); MEAN CORPUSCULAR HGB CONC 32.4 g/dl (32.0-37.0); MEAN CORPUSCULAR VOLUME 90.4 fl (82.0-101.0); MONOCYTE # 0.7 10^3/ul (0.3-0.9); MONOCYTES % 7.4 % (0.0-11.0); NEUTROPHIL # 6.5 10^3/ul (1.6-7.5); NEUTROPHILS % 65.3 % (39.0-77.0); PLATELET COUNT 249 10^3/UL (140-415); RED BLOOD COUNT 5.83 10^6/ul (4.70-6.10); RED CELL DISTRIBUTION WIDTH 13.2 % (11.5-14.5)
[2017-04-11 18:42] LABS: INR 0.98
[2017-04-11 18:43] LABS: ALBUMIN 4.5 g/dl (3.3-4.9); ALBUMIN/GLOBULIN RATIO 1.21; BILIRUBIN,INDIRECT 0.7 mg/dl (0-1.1); BILIRUBIN,TOTAL 0.7 mg/dl (0.2-1.3); CALCIUM 9.9 mg/dl (8.4-10.2); CREATININE 1.05 mg/dl (0.61-1.24); TOTAL PROTEIN 8.2 g/dl (6.1-8.1)
--- NOTE | 2017-04-11 18:44 | RADRPT ---
PROCEDURE: CT Brain without contrast. CLINICAL INDICATION: Trauma, headache. TECHNIQUE: A CT of the brain was performed utilizing axial sections from the skull base through th e vertex without contrast. Multiplanar re-formations were generated. Images were reviewed on a high- resolution PACS workstation. CTDIvol: 43.27 mGy. DLP: 720.23 mGy-cm. One or more of the following dose reduction techniques were used: - Automated exposure control. - Adjustment of the mA and/or kV according to patient size. - Use of iterative reconstruction technique. COMPARISON: None available FINDINGS: There is mild generalized volume loss. No hydrocephalus is seen. There is no mass effect. No acute intracranial hemorrhage is identified. There is no extra-axial collection. No CT evidence of acute infarction is identified. Chronic lacunar infarctions are identified in the bilateral basal ganglia regions. There is patchy low attenuation in the supratentorial white matter, a nonspecific finding w hich most likely represents the sequela of mild chronic microvascular ischemic disease. There are m ild to moderate atherosclerotic arterial calcifications. There is no significant mucosal disease in the paranasal sinuses. The visualized mastoid air cells a re clear. The ossesous structures are unremarkable. The extracranial soft tissues are unremarkable. IMPRESSION: 1. No acute intracranial pathology. 2. Mild generalized volume loss. 3. Chronic lacunar infarctions in the bilateral basal ganglia regions. 4. Mild chronic microvascular ischemic changes. 5. Atherosclerotic arterial calcifications. RPTAT: HTAR .Reji Prescott MD, Date Time Electronically viewed and signed by .Reji Prescott MD, MD on 04/11/2017 18:44 .R/
[2017-04-11 18:54] LABS: TROPONIN-I 0.014 ng/ml (0.00-0.12)
[2017-04-11] MEDS ORDERED: ONDANSETRON 4 MG INJ IV STA (18:57)
[2017-04-11] MEDS ORDERED: morphine 4 MG/ML VIAL IV STA (18:57)
[2017-04-11] MEDS ORDERED: morphine 4 MG/ML VIAL ONE (18:58)
--- NOTE | 2017-04-11 18:59 | RADRPT ---
PROCEDURE: CT cervical spine without contrast. CLINICAL INDICATION: Trauma, neck pain. TECHNIQUE: A CT of the cervical spine was performed without intravenous contrast. Coronal and sag ittal reformats were generated. CTDIvol: 22.19 mGy. DLP: 474.07 mGy-cm. One or more of the following dose reduction techniques were used: - Automated exposure control. - Adjustment of the mA and/or kV according to patient size. - Use of iterative reconstruction technique. COMPARISON: None. FINDINGS: There is a normal cervical lordosis. There is grade 1 degenerative C2 anterolisthesis and C4 retrol isthesis. The vertebral body heights are maintained. No Q fracture or subluxation is seen. The pre vertebral soft tissues are normal. There are moderate to severe neural foraminal narrowings bilaterally at C3-C4 and C4-C5, and on the left at C5-C6. There is mild spinal canal stenosis at C3-C4 and moderate multilevel spinal canal harini nosis from C4-C5 through C7-T1. There is mild left carotid bulb calcification. IMPRESSION: 1. No acute fracture or subluxation of the cervical spine. 2. Grade 1 degenerative anterolisthesis and C4 retrolisthesis. 3. Mild spinal canal stenosis at C3-C4 and moderate multilevel spinal canal stenosis from C4-C5 thr ough C7-T1. 4. Moderate to severe neural foraminal narrowings bilaterally at C3-C4 and C4-C5, and on the left a t C5-C6. RPTAT: HTAR .Reji Prescott MD, Date Time Electronically viewed and signed by .Reji Prescott MD, on 04/11/2017 18:59 .R/
--- NOTE | 2017-04-11 19:14 | RADRPT ---
PROCEDURE: Portable chest x-ray. CLINICAL INDICATION: 71 years of age, male. Chest pain. TECHNIQUE: Portable AP view of the chest. COMPARISON: February 05, 2017 FINDINGS: Left subclavian dual lead pacemaker with electrodes over right atrium and right ventricle is unchang ed. Tortuous aorta. Borderline heart size. Lungs are clear. Negative for pleural effusion or pneumothorax. No acute bony abnormality. IMPRESSION: Negative for evidence of an acute chest process. RPTAT: HCTS Physician Elie Date Time Electronically viewed and signed by Simone Queen Physician on 04/11/2017 19:13 CS/
[2017-04-11 19:17] LABS: PARTIAL THROMBOPLASTIN TIME 30.7 Sec (25.0-35.0)
[2017-04-11] MEDS ORDERED: DULO20CA17 PO (19:24)
[2017-04-11] MEDS ORDERED: HYDR-906 PO (19:24)
[2017-04-11] MEDS ORDERED: TRAZ50TA18 PO (19:24)
[2017-04-11] MEDS ORDERED: NITROGLYCERIN 2% 1 GM OINT PKT TD ONE (20:00)
[2017-04-11] MEDS ORDERED: ACETAMINOPHEN 325 MG TAB PO PRN ×2 (21:30→23:30)
[2017-04-11] MEDS ORDERED: ONDANSETRON 4 MG INJ IV PRN ×3 (21:30→23:30)
[2017-04-11 22:21] LABS: TROPONIN-I 0.025 ng/ml (0.00-0.12)
[2017-04-11 22:22] LABS: CK-MB 1.19 ng/ml (0.0-2.4)
[2017-04-11] MEDS ORDERED: NACL 0.9% 3 ML SYG IV SCH (23:30)
[2017-04-11] MEDS ORDERED: ALPRAZOLAM 1 MG TAB PO PRN (23:30)
[2017-04-11] MEDS: FAMOTIDINE 20 MG INJ IV SCH (23:30)
[2017-04-12] VITALS (11 sets, daily range): BP systolic 93–133; BP diastolic 63–82; PULSE 63–72; RESP 18
[2017-04-12] MEDS: PYRIDOSTIGMINE 60 MG TAB PO SCH ×6 (01:00→21:00)
--- NOTE | 2017-04-12 01:31 | HP ---
Date/Time of Note Date/Time of Note DATE: 04/12/17 TIME: 01:14 Assessment/Plan VTE Prophylaxis VTE Prophylaxis Intervention: SCD's Lines/Catheters IV C[facility]ter [facility]from [facility] Saline Lock Assessment/Plan Chief Complaint/Hosp Course This is a 21 male being admitted to the telemetry floor for: #1 chest pain: Rule out ACS. Will trend troponins. EKG: Ventricular paced rhythm rate 106. Occasional PVCs. Previous stress test again showed: small to moderate-sized nonreversible perfusion defect in the apical and inferior bang. With a stress EF of 47%. Will provide nitro patch for pain/morphine. We will continue patient's home medications. Will consult cardiology. #2 Mechanical fall: CAT scan of the head does not show any acute abnormality. CT scan of the C-spine does not show any acute fractures. Will get PT OT evaluation. Ambulation with walker. Fall precautions. #3 ocular myasthenia gravis: Patient does have abnormal eye movements, however he also does display an irregular lip movement behavior when he speaking and patient also reports that he also feels weak a lot of times. Patient was seen by neurology during his last visit and he was continued on Mestinon 30 mg p.o. every 4 hours. However this is not on his med reconciliation. Will continue his Mestinon p.o. every 4 hours. #4 atrial fibrillation: Currently patient is ventricular paced rhythm. Will continue Xarelto. #5 hypertension: Continue patient home medications. #6 social condition: Patient upon last discharge was sent to a senior living facility and then from there apparently he was sent to a hospice facility. He is confuses why he is under the hospice facility. Will need to consult social work/case management in regards to placement for this patient upon discharge. Patient does state that his CODE STATUS is a DNR. #7 DVT and GI prophylaxis: SCDs, acid kimberly Further treatment strategy will be implemented as per the clinical course Problems: HPI/ROS Admit Date/Time Admit Date/Time Hx of Present Illness Chief complaint: Chest pain 71-year-old male with a history of history of myasthenia gravis, chronic tremors , atrial fib on Xarelto, coronary artery disease status post PCI, hypertension, dyslipidemia and prostate CA status post prostatectomy, chemotherapy and radiation presents to the ED by rescue ambulance for evaluation of chest pain. Of note patient is a very poor historian. At approximately 3 PM on 04/11 patient had a mechanical trip and fall while walking with his walker and afterwards began complaining of severe, pressure-like, substernal chest pain that radiated to his left shoulder. Patient describes a feeling as if a "elephant is sitting on my chest". Mild shortness of breath shortness of breath and vomiting but denies nausea or diaphoresis. Patient received aspirin 162 mg and sublingual nitroglycerin 3 from paramedics with minimal relief. Denies abdominal pain or back pain. No headache, visual changes, focal weakness or numbness. Denies leg pain or swelling. No fevers or chills. Patient was admitted 02/05/2017 for similar symptoms. He ruled out for CT. Lexiscan study revealed a small to moderate nonreversible perfusion defect in the apical inferior bang. Of note patient currently is residing in a hospice facility and he is unsure why he is there. On previous admission patient was admitted for similar symptoms. Allergies: Codeine Medications: See REHAN MICHEL Const: As per HPI Eyes : No pain discharge or redness or change in visual acuity ENT: No pain, sore throat, congestion, congestion, dysphagia or discharge Respiratory: No shortness of breath, cough, sputum, wheezing, or pleuritic pain Cardiovascular: As per HPI GI : no change in appetite, abdominal pain, nausea, vomiting, diarrhea, constipation, or change in the color his stool Genitourinary: No dysuria, hematuria, flank pain , discharge or CVA tenderness Musculoskeletal: No joint pain, back pain, neck pain, restricted range of motion in neck or joints Skin: No rash, bruising or hives Neuro: As per HPI Endocrine: No polyuria, polydipsia, temperature intolerance Psych: No hallucination, depression, anxiety or suicidal ideation PMH/Family/Social Past Medical History Ocular myasthenia gravis, Atrial fibrillation, hypertension, prostate cancer, previous history of CT, coronary artery disease Past Surgical History Right knee replacement, previous history of stenting and balloon angioplasty, pacemaker placement, prostatectomy, cholecystectomy Family History Significant Family History: other Social History Alcohol Use: none (Brain tumor: Mom) Smoking Status: Never smoker Drug Use: none Exam/Review of Systems Vital Signs Vitals Vital Signs Date Time Temp Pulse Resp B/P Pulse Ox O2 Delivery O2 Flow Rate FiO2 04/12/17 00:00 89 14 101/75 89 Room Air 04/11/17 17:38 98.5 Exam Exam General: Patient is lying in bed in mild distress from chest pain. Visibly showing eye twitching as well as abnormal lip movements. HEENT: Atraumatic, normocephalic. The pupils are equal, round and reactive. Extraocular motor are intact Neck: Supple with full range of motion. No rigidity or meningismus Chest: Nontender Lungs: Clear to auscultation bilaterally no crackles rales or wheezing Heart: Normal S1-S2, Regular rhythm and rate. Abdomen: Soft , nontender, nondistended , bowel sounds are present. No guarding no rebound tenderness , No masses or organomegaly. No costovertebral temporal angle mass Extremities: Normal to inspection, no edema no cyanosis Neurologic: Normal mental status, speech normal, cranial nerves II through XII are intact, motor and sensory are intact, no focal weakness, Visibly showing eye twitching as well as abnormal lip movements. Additional Comments EKG #1: TIME: 17:33. Ventricular paced rhythm at a rate of 117. Occasional PVCs. EKG #2: TIME: 17:55. Ventricular paced rhythm rate 106. Occasional PVCs. Unchanged from 02/07/2017. EP interpretation: Abnormal ECG As per ED physician documentationPROCEDURE: CT Brain without contrast. CLINICAL INDICATION: Trauma, headache. TECHNIQUE: A CT of the brain was performed utilizing axial sections from the skull base through the vertex without contrast. Multiplanar re-formations were generated. Images were reviewed on a high-resolution PACS workstation. CTDIvol: 43.27 mGy. DLP: 720.23 mGy-cm. One or more of the following dose reduction techniques were used: - Automated exposure control. - Adjustment of the mA and/or kV according to patient size. - Use of iterative reconstruction technique. COMPARISON: None available FINDINGS: There is mild generalized volume loss. No hydrocephalus is seen. There is no mass effect. No acute intracranial hemorrhage is identified. There is no extra- axial collection. No CT evidence of acute infarction is identified. Chronic lacunar infarctions are identified in the bilateral basal ganglia regions. There is patchy low attenuation in the supratentorial white matter, a nonspecific finding which most likely represents the sequela of mild chronic microvascular ischemic disease. There are mild to moderate atherosclerotic arterial calcifications. There is no significant mucosal disease in the paranasal sinuses. The visualized mastoid air cells are clear. The ossesous structures are unremarkable. The extracranial soft tissues are unremarkable. IMPRESSION: 1. No acute intracranial pathology. 2. Mild generalized volume loss. 3. Chronic lacunar infarctions in the bilateral basal ganglia regions. 4. Mild chronic microvascular ischemic changes. 5. Atherosclerotic arterial calcifications. RPTAT: HTAR .Reji Prescott MD, MD Date Time Electronically viewed and signed by .Reji Prescott MD, MD on 04/11/2017 18:44 .R/ CC: MATT ORANTES MD PROCEDURE: CT cervical spine without contrast. CLINICAL INDICATION: Trauma, neck pain. TECHNIQUE: A CT of the cervical spine was performed without intravenous contrast. Coronal and sagittal reformats were generated. CTDIvol: 22.19 mGy. DLP: 474.07 mGy-cm. One or more of the following dose reduction techniques were used: - Automated exposure control. - Adjustment of the mA and/or kV according to patient size. - Use of iterative reconstruction technique. COMPARISON: None. FINDINGS: There is a normal cervical lordosis. There is grade 1 degenerative C2 anterolisthesis and C4 retrolisthesis. The vertebral body heights are maintained. No Q fracture or subluxation is seen. The prevertebral soft tissues are normal. There are moderate to severe neural foraminal narrowings bilaterally at C3-C4 and C4-C5, and on the left at C5-C6. There is mild spinal canal stenosis at C3- C4 and moderate multilevel spinal canal stenosis from C4-C5 through C7-T1. There is mild left carotid bulb calcification. IMPRESSION: 1. No acute fracture or subluxation of the cervical spine. 2. Grade 1 degenerative anterolisthesis and C4 retrolisthesis. 3. Mild spinal canal stenosis at C3-C4 and moderate multilevel spinal canal stenosis from C4-C5 through C7-T1. 4. Moderate to severe neural foraminal narrowings bilaterally at C3-C4 and C4- C5, and on the left at C5-C6. RPTAT: HTAR .Reji Prescott MD, Date Time Electronically viewed and signed by .Reji Prescott MD, on 04/11/2017 18:59 .R/ CC: MATT ORANTES MD PROCEDURE: Portable chest x-ray. CLINICAL INDICATION: 71 years of age, male. Chest pain. TECHNIQUE: Portable AP view of the chest. COMPARISON: February 05, 2017 FINDINGS: Left subclavian dual lead pacemaker with electrodes over right atrium and right ventricle is unchanged. Tortuous aorta. Borderline heart size. Lungs are clear. Negative for pleural effusion or pneumothorax. No acute bony abnormality. IMPRESSION: Negative for evidence of an acute chest process. RPTAT: HCTS Physician Elie Date Time Electronically viewed and signed by Simone Queen Physician on 04/11/2017 19: 13 CS/ CC: MATT ORANTES MD Labs Result Diagram: 04/11/17 1800 04/11/17 1800 Medications Medications Current Medications Ondansetron HCl (Zofran Inj) 4 mg Q4 PRN IV NAUSEA AND/OR VOMITING; Start at 22:30 Morphine Sulfate (morphine) 4 mg Q4 PRN IV PAIN LEVEL 4-7; Start 04/11/17 at 22:30 Ondansetron HCl (Zofran Inj) 4 mg Q6H PRN IV NAUSEA AND/OR VOMITING; Start at 23:30 Acetaminophen (Tylenol Tab) 650 mg Q6H PRN PO PAIN LEVEL 1-3 OR FEVER; Start 04/11/17 at 23:30 Famotidine (Pepcid Iv) 20 mg Q12 IV Last administered on 04/11/17t 23:30; Admin Dose 20 MG; Start 04/11/17 at 23:30 Pyridostigmine [place] (Mestinon) 30 mg Q4 PO ; Start 04/12/17 at 01:00 Amlodipine Besylate (Norvasc) 10 mg DAILY PO ; Start 04/12/17 at 09:00 Duloxetine HCl (Cymbalta) 40 mg DAILY PO ; Start 04/12/17 at 09:00 Lisinopril (Zestril) 40 mg DAILY PO ; Start 04/12/17 at 09:00 Pantoprazole (Protonix Tab) 40 mg DAILY@06 PO ; Start 04/12/17 at 06:00 Trazodone HCl (Desyrel) 50 mg QHS PO ; Start 04/12/17 at 21:00 Alprazolam (Xanax) 2 mg Q8H PRN PO ANXIETY; Start 04/11/17 at 23:30 ZEN MARIN Apr 12, 2017 01:25
[2017-04-12 04:06] LABS: BASOPHILS % 0.3 % (0.0-2.0); EOSINOPHILS # 0.1 10^3/ul (0.0-0.5); EOSINOPHILS % 0.9 % (0.0-7.0); HEMATOCRIT 46.6 % (42.0-52.0); HEMOGLOBIN 15.6 g/dl (14.0-18.0); LYMPHOCYTES # 1.3 10^3/ul (0.8-2.9); LYMPHOCYTES % 19.2 % (15.0-51.0); MEAN CORPUSCULAR HEMOGLOBIN 30.2 pg (29.0-33.0); MEAN CORPUSCULAR HGB CONC 33.5 g/dl (32.0-37.0); MEAN CORPUSCULAR VOLUME 90.3 fl (82.0-101.0); MEAN PLATELET VOLUME 8.9 fl (7.4-10.4); MONOCYTE # 0.6 10^3/ul (0.3-0.9); MONOCYTES % 8.8 % (0.0-11.0); NEUTROPHIL # 4.7 10^3/ul (1.6-7.5); NEUTROPHILS % 70.3 % (39.0-77.0); PLATELET COUNT 207 10^3/UL (140-415); RED BLOOD COUNT 5.16 10^6/ul (4.70-6.10); RED CELL DISTRIBUTION WIDTH 13.1 % (11.5-14.5); WHITE BLOOD COUNT 6.6 10^3/ul (4.8-10.8)
[2017-04-12 04:10] LABS: ALBUMIN 3.8 g/dl (3.3-4.9); ALBUMIN/GLOBULIN RATIO 1.22; BILIRUBIN,INDIRECT 0.7 mg/dl (0-1.1); BILIRUBIN,TOTAL 0.7 mg/dl (0.2-1.3); CALCIUM 9.3 mg/dl (8.4-10.2); CREATININE 1.33 mg/dl (0.61-1.24); POTASSIUM 3.9 mmol/L (3.5-5.1); TOTAL PROTEIN 6.9 g/dl (6.1-8.1)
[2017-04-12 04:22] LABS: TROPONIN-I 0.034 ng/ml (0.00-0.12)
[2017-04-12 05:08] LABS: CK-MB 1.22 ng/ml (0.0-2.4)
[2017-04-12] MEDS: PANTOPRAZOLE (EC) 40 MG TAB PO SCH (05:23)
[2017-04-12] MEDS: DULOXETINE 20 MG CAP DR PO SCH (09:00)
[2017-04-12] MEDS: FAMOTIDINE 20 MG INJ IV SCH (09:00)
[2017-04-12] MEDS: AMLODIPINE 10 MG TAB PO SCH (09:06)
[2017-04-12] MEDS: LISINOPRIL 20 MG TAB PO SCH (09:07)
[2017-04-12] MEDS: morphine 4 MG/ML VIAL IV PRN ×3 (09:09→18:31)
--- NOTE | 2017-04-12 09:33 | PN ---
Date/Time of Note Date/Time of Note DATE: 04/12/17 TIME: 09:32 Assessment/Plan VTE Prophylaxis VTE Prophylaxis Intervention: other Lines/Catheters IV Catheter Type (from Nrsg): Saline Lock Assessment/Plan Assessment/Plan 1. Acute chest pain, rule out ACS - Cardiology on board and recommendations appreciated. Patient had a recent stress test that did not show any acute ischemia. EKG showed ventricular paced rhythm - Troponins slightly elevated but also has acute STEFANIA. Will continue to monitor - Medical management vs [facility] per cardiology recommendations 2. Ocular Myasthenia gravis - Will restart on Mestinon 30mg PO q4hrs. If no improvement will consider neurology consult 3. Atrial fibrillation - currently RV paced - continue on xarelto 20mg qpm 4. HTN - stable 5. Disposition - Awaiting cardiology final recommendations - CM consultation for placement assistance Subjective 24 Hr Interval Summary Free Text/Dictation Patient states he currently does not have any chest pain but did experiencing stabbing sternal pains when in his kitchen yesterday. He was seen recently with stress test performed as well. States he did not choose to be placed in Hospice and does not have any family who would have made that decision for him as well. Also requesting to meet with case management to discuss placement options since unhappy with current location. Exam/Review of Systems Vital Signs Vitals Vital Signs Date Time Temp Pulse Resp B/P Pulse Ox O2 Delivery O2 Flow Rate FiO2 04/12/17 09:05 98.7 64 18 105/64 97 Nasal Cannula 2.0 Exam General: Patient is lying in bed in NAD. awake and responding to questions appropriately HEENT: Atraumatic, normocephalic. The pupils are equal, round and reactive. Extraocular motor are intact Neck: Supple with full range of motion. Lungs: Clear to auscultation bilaterally no crackles rales or wheezing Heart: Normal S1-S2, Regular rhythm and rate. Abdomen: Soft , nontender, nondistended , bowel sounds are present. No guarding no rebound tenderness , No masses or organomegaly. No costovertebral temporal angle mass Extremities: Normal to inspection, no edema no cyanosis Neurologic: Normal mental status, speech normal, cranial nerves II through XII are intact, motor and sensory are intact, no focal weakness, Visibly showing eye twitching as well as abnormal lip movements. Results Result Diagram: 04/12/17 0330 04/12/17 0330 Results 24 hrs Laboratory Tests Test 04/11/17 18:00 04/11/17 21:45 04/12/17 03:30 White Blood Count 10.0 # 6.6 # Red Blood Count 5.83 # 5.16 Hemoglobin 17.1 # 15.6 Hematocrit 52.7 #H 46.6 Mean Corpuscular Volume 90.4 90.3 Mean Corpuscular Hemoglobin 29.3 30.2 Mean Corpuscular Hemoglobin Concent 32.4 33.5 Red Cell Distribution Width 13.2 13.1 Platelet Count 249 # 207 Mean Platelet Volume 9.0 8.9 Neutrophils % 65.3 70.3 Lymphocytes % 26.5 19.2 Monocytes % 7.4 8.8 Eosinophils % 0.3 0.9 Basophils % 0.3 0.3 Nucleated Red Blood Cells % 0.0 0.0 Neutrophils # 6.5 4.7 Lymphocytes # 2.7 1.3 Monocytes # 0.7 0.6 Eosinophils # 0.0 0.1 Basophils # 0.0 0.0 Nucleated Red Blood Cells # 0.0 0.0 Prothrombin Time 13.0 Prothrombin Time Ratio 1.0 INR International Normalized Ratio 0.98 Activated Partial Thromboplast Time 30.7 Sodium Level 147 H 146 H Potassium Level 4.0 3.9 Chloride Level 103 107 Carbon Dioxide Level 30 29 Anion Gap 18 H 14 Blood Urea Nitrogen 14 19 Creatinine 1.05 1.33 H Glucose Level 106 126 Calcium Level 9.9 9.3 Total Bilirubin 0.7 0.7 Direct Bilirubin 0.00 0.00 Indirect Bilirubin 0.7 0.7 Aspartate Amino Transf (AST/SGOT) 39 62 #H Alanine Aminotransferase (ALT/SGPT) 49 68 Alkaline Phosphatase 93 79 Troponin I 0.014 0.025 0.034 Total Protein 8.2 H 6.9 # Albumin 4.5 3.8 Globulin 3.70 H 3.10 Albumin/Globulin Ratio 1.21 1.22 Creatine Kinase 43 46 Creatine Kinase Index 2.8 2.7 Creatinine Kinase MB (Mass) 1.19 1.22 Medications Medications Current Medications Ondansetron HCl (Zofran Inj) 4 mg Q4 PRN IV NAUSEA AND/OR VOMITING; Start at 22:30 Morphine Sulfate (morphine) 4 mg Q4 PRN IV PAIN LEVEL 4-7 Last administered on 04/12/17 09:09; Admin Dose 4 MG; Start 04/11/17 at 22:30 Ondansetron HCl (Zofran Inj) 4 mg Q6H PRN IV NAUSEA AND/OR VOMITING; Start at 23:30 Acetaminophen (Tylenol Tab) 650 mg Q6H PRN PO PAIN LEVEL 1-3 OR FEVER; Start 04/11/17 at 23:30 Famotidine (Pepcid Iv) 20 mg Q12 IV Last administered on 04/11/17 23:30; Admin Dose 20 MG; Start 04/11/17 at 23:30 Pyridostigmine [place] (Mestinon) 30 mg Q4 PO Last administered on 04/12/17 09:07; Admin Dose 30 MG; Start 04/12/17 at 01:00 Amlodipine Besylate (Norvasc) 10 mg DAILY PO Last administered on 04/12/17 09 :06; Admin Dose 10 MG; Start 04/12/17 at 09:00 Duloxetine HCl (Cymbalta) 40 mg DAILY PO ; Start 04/12/17 at 09:00 Lisinopril (Zestril) 40 mg DAILY PO Last administered on 04/12/17 09:07; Admin Dose 40 MG; Start 04/12/17 at 09:00 Pantoprazole (Protonix Tab) 40 mg DAILY@06 PO Last administered on 04/12/17 05:23; Admin Dose 40 MG; Start 04/12/17 at 06:00 Trazodone HCl (Desyrel) 50 mg QHS PO ; Start 04/12/17 at 21:00 Alprazolam (Xanax) 2 mg Q8H PRN PO ANXIETY; Start 04/11/17 at 23:30 NIC STEVENS MD Apr 12, 2017 09:32
--- NOTE | 2017-04-12 10:10 | CONS ---
Date/Time of Note Date/Time of Note DATE: 04/12/17 TIME: 10:08 Assessment/Plan Assessment/Plan Additional Assessment/Plan 71 yo with CAD, device in place, parox a. fib - now with CP. Suggestive history but non-rev stress test recently - will discuss if LHC might be warranted with Dr. Vasquez. Will resume Xarelto for now. Full note dictated thank you # [phone] Consultation Date/Type/Reason Admit Date/Time Apr 11, 2017 at 21:14 Initial Consult Date Exam/Review of Systems Vital Signs Vitals Vital Signs Date Time Temp Pulse Resp B/P Pulse Ox O2 Delivery O2 Flow Rate FiO2 04/12/17 09:05 98.7 64 18 105/64 97 Nasal Cannula 2.0 Results Result Diagram: 04/12/1732904/12/17329 Results 24 hrs Laboratory Tests Test 04/11/17 18:00 04/11/17 21:45 04/12/17 03:30 White Blood Count 10.0 # 6.6 # Red Blood Count 5.83 # 5.16 Hemoglobin 17.1 # 15.6 Hematocrit 52.7 #H 46.6 Mean Corpuscular Volume 90.4 90.3 Mean Corpuscular Hemoglobin 29.3 30.2 Mean Corpuscular Hemoglobin Concent 32.4 33.5 Red Cell Distribution Width 13.2 13.1 Platelet Count 249 # 207 Mean Platelet Volume 9.0 8.9 Neutrophils % 65.3 70.3 Lymphocytes % 26.5 19.2 Monocytes % 7.4 8.8 Eosinophils % 0.3 0.9 Basophils % 0.3 0.3 Nucleated Red Blood Cells % 0.0 0.0 Neutrophils # 6.5 4.7 Lymphocytes # 2.7 1.3 Monocytes # 0.7 0.6 Eosinophils # 0.0 0.1 Basophils # 0.0 0.0 Nucleated Red Blood Cells # 0.0 0.0 Prothrombin Time 13.0 Prothrombin Time Ratio 1.0 INR International Normalized Ratio 0.98 Activated Partial Thromboplast Time 30.7 Sodium Level 147 H 146 H Potassium Level 4.0 3.9 Chloride Level 103 107 Carbon Dioxide Level 30 29 Anion Gap 18 H 14 Blood Urea Nitrogen 14 19 Creatinine 1.05 1.33 H Glucose Level 106 126 Calcium Level 9.9 9.3 Total Bilirubin 0.7 0.7 Direct Bilirubin 0.00 0.00 Indirect Bilirubin 0.7 0.7 Aspartate Amino Transf (AST/SGOT) 39 62 #H Alanine Aminotransferase (ALT/SGPT) 49 68 Alkaline Phosphatase 93 79 Troponin I 0.014 0.025 0.034 Total Protein 8.2 H 6.9 # Albumin 4.5 3.8 Globulin 3.70 H 3.10 Albumin/Globulin Ratio 1.21 1.22 Creatine Kinase 43 46 Creatine Kinase Index 2.8 2.7 Creatinine Kinase MB (Mass) 1.19 1.22 Medications Medications Current Medications Ondansetron HCl (Zofran Inj) 4 mg Q4 PRN IV NAUSEA AND/OR VOMITING; Start at 22:30 Morphine Sulfate (morphine) 4 mg Q4 PRN IV PAIN LEVEL 4-7 Last administered on 04/12/17 09:09; Admin Dose 4 MG; Start 04/11/17 at 22:30 Ondansetron HCl (Zofran Inj) 4 mg Q6H PRN IV NAUSEA AND/OR VOMITING; Start at 23:30 Acetaminophen (Tylenol Tab) 650 mg Q6H PRN PO PAIN LEVEL 1-3 OR FEVER; Start 04/11/17 at 23:30 Famotidine (Pepcid Iv) 20 mg Q12 IV Last administered on 04/11/17 23:30; Admin Dose 20 MG; Start 04/11/17 at 23:30 Pyridostigmine [place] (Mestinon) 30 mg Q4 PO Last administered on 04/12/17 09:07; Admin Dose 30 MG; Start 04/12/17 at 01:00 Amlodipine Besylate (Norvasc) 10 mg DAILY PO Last administered on 04/12/17 09 :06; Admin Dose 10 MG; Start 04/12/17 at 09:00 Duloxetine HCl (Cymbalta) 40 mg DAILY PO ; Start 04/12/17 at 09:00 Lisinopril (Zestril) 40 mg DAILY PO Last administered on 04/12/17 09:07; Admin Dose 40 MG; Start 04/12/17 at 09:00 Pantoprazole (Protonix Tab) 40 mg DAILY@06 PO Last administered on 04/12/17 05:23; Admin Dose 40 MG; Start 04/12/17 at 06:00 Trazodone HCl (Desyrel) 50 mg QHS PO ; Start 04/12/17 at 21:00 Alprazolam (Xanax) 2 mg Q8H PRN PO ANXIETY; Start 04/11/17 at 23:30 ALEX SANCHEZ MD Apr 12, 2017 10:10
[2017-04-12 10:36] LABS: TROPONIN-I 0.023 ng/ml (0.00-0.12)
[2017-04-12 10:38] LABS: CK-MB 1.28 ng/ml (0.0-2.4)
[2017-04-12] MEDS ORDERED: RIVAROXABAN 20 MG TABLET PO ONE (11:00)
--- NOTE | 2017-04-12 11:12 | CONS ---
DATE OF ADMISSION: 04/11/2017 DATE OF CONSULTATION: 04/12/2017 TYPE OF CONSULTATION: Cardiology. REFERRING PHYSICIAN: Darci Pringle MD REASON FOR EVALUATION: Chest pain. HISTORY OF PRESENT ILLNESS: Mr. Sawyer is a 71-year-old gentleman with history of dyslipidemia, hi story of coronary artery disease, history of prior PCIs, history of pacemaker, who comes to the hosp ital now for evaluation of chest pain. The patient had a recent admission and had a Lexiscan study fairly recently, which showed an EF of 47% with some mild to moderate size nonreversible perfusion d efect; however, the patient continues to report chest discomfort. He is not the most consistent his myranda. He did not rule in for acute myocardial ischemia. I think for now, conservative therapy is expected. I do not believe there is an indication for another recertification with a stress test. I think the plan would be for the patient either to medically manage to have left heart catheteriza tion. I will discuss this further with Dr. Vasquez. PAST MEDICAL HISTORY: 1. Hypertension. 2. Dyslipidemia. 3. History of atrial fibrillation, paroxysmal, secondary to . 4. History of pacemaker. 5. History of prior PCI. 6. History of prostate cancer. 7. History of prior admission for chest pain. 8. History of chronic tremors. ALLERGIES: NO KNOWN ALLERGIES. SOCIAL HISTORY: The patient does not smoke, does not drink, does not use drugs. FAMILY HISTORY: Negative for sudden cardiac or premature coronary artery disease. REVIEW OF SYSTEMS: EXTREMITIES: No fevers, no chills, no tremors. HEENT: No changes in vision or hearing. CARDIAC: Chest pain as reported. RESPIRATORY: No shortness of breath. GASTROINTESTINAL: No nausea, vomiting, diarrhea, constipation. GENITOURINARY: No dysuria, hematuria. NEUROLOGIC: No focal neural deficits. PSYCHIATRIC: Likely history of psychiatric illness. MEDICATIONS: Here include: 1. once a day. 2. Norvasc 10 mg p.o. once a day. 3. Lisinopril 40 mg a day. 4. Protonix. 5. Ondansetron. 6. Famotidine 20 mg. 7. Xanax. 8. Morphine 4 mg IV every 4 hours. 9. Nitroglycerin. PHYSICAL EXAMINATION: VITAL SIGNS: Temperature is 98.7, heart rate 64, blood pressure 105/64. GENERAL: He is a thin gentleman in no acute distress, alert and oriented x3, somewhat aware of his condition. HEAD: Normocephalic, atraumatic. Eyes anicteric. NECK: Supple. JVD 6-7 cm. There is no lymphadenopathy, no thyromegaly. HEART: Regular with soft holosystolic murmur. PMI is nondisplaced. There is no S3. LUNGS: Coarse at bases. ABDOMEN: Distended, bowel sounds present. There is no hepatosplenomegaly HEENT: Grossly intact. EXTREMITIES: No clubbing, cyanosis or edema. ECG read by me showed that he has sinus rhythm with RV pacing. LABORATORY DATA: Shows white blood cell count 6.6, hemoglobin is 15.6, platelets 207. Sodium 146, potassium 3.9, creatinine 133, BUN 19. Troponin negative at 0.034. ASSESSMENT AND PLAN: 1. Chest pain. The patient has history of chest pain, history of coronary artery disease, but a re cent stress test without significant ischemia. For now, conservative therapy is expected with medic ations. I will discuss with Dr. Vasquez if left heart catheterization is indicated. Pacemaker appe ars to be with normal function, patient is 100%, RV paced 2. History of paroxysmal atrial fibrillation, in sinus now. We will resume anticoagulation in the form of Xarelto unless there is a contraindication. 3. Anxiety. Continue to treat for anxiety per primary team as needed. 4. History of tremors, etiology is unclear. Will monitor closely. 5. Chronic pain syndrome. The patient is on a fairly large dose of morphine. We will defer to [facility] team for management. I would like to thank Dr. Pringle for referring this patient for my evaluation. Dictated By: ALEX BEST/EZEKIEL Conf#: [id number] DID#: [id number]
[2017-04-12] MEDS: SOD CHLORIDE 0.9% 1,000 ML IV SCH (17:45)
[2017-04-12] MEDS ORDERED: traZODone 50 MG TAB PO SCH (21:00)
[2017-04-13] VITALS (10 sets, daily range): BP systolic 100–133; BP diastolic 57–71; PULSE 60–63; RESP 16–20
[2017-04-13] MEDS: PYRIDOSTIGMINE 60 MG TAB PO SCH ×4 (00:29→14:32)
[2017-04-13] MEDS: morphine 4 MG/ML VIAL IV PRN ×2 (00:30→08:48)
[2017-04-13] MEDS: SOD CHLORIDE 0.9% 1,000 ML IV SCH (03:55)
[2017-04-13] MEDS: PANTOPRAZOLE (EC) 40 MG TAB PO SCH (05:46)
[2017-04-13 07:27] LABS: BASOPHILS % 0.3 % (0.0-2.0); EOSINOPHILS # 0.2 10^3/ul (0.0-0.5); HEMATOCRIT 46.1 % (42.0-52.0); HEMOGLOBIN 14.8 g/dl (14.0-18.0); LYMPHOCYTES # 1.4 10^3/ul (0.8-2.9); MEAN CORPUSCULAR HEMOGLOBIN 29.8 pg (29.0-33.0); MEAN CORPUSCULAR HGB CONC 32.1 g/dl (32.0-37.0); MEAN CORPUSCULAR VOLUME 92.9 fl (82.0-101.0); MEAN PLATELET VOLUME 8.9 fl (7.4-10.4); MONOCYTE # 0.6 10^3/ul (0.3-0.9); MONOCYTES % 9.3 % (0.0-11.0); NEUTROPHIL # 4.3 10^3/ul (1.6-7.5); NEUTROPHILS % 66.1 % (39.0-77.0); PLATELET COUNT 183 10^3/UL (140-415); RED BLOOD COUNT 4.96 10^6/ul (4.70-6.10); RED CELL DISTRIBUTION WIDTH 13.2 % (11.5-14.5); WHITE BLOOD COUNT 6.6 10^3/ul (4.8-10.8)
[2017-04-13 07:48] LABS: ALBUMIN 3.5 g/dl (3.3-4.9); CALCIUM 8.6 mg/dl (8.4-10.2); CREATININE 1.06 mg/dl (0.61-1.24); MAGNESIUM 1.8 mg/dl (1.7-2.5); POTASSIUM 4.1 mmol/L (3.5-5.1)
[2017-04-13] MEDS: DULOXETINE 20 MG CAP DR PO SCH (08:45)
[2017-04-13] MEDS: AMLODIPINE 10 MG TAB PO SCH (08:47)
[2017-04-13] MEDS: LISINOPRIL 20 MG TAB PO SCH (08:47)
--- NOTE | 2017-04-13 09:48 | PN ---
Date/Time of Note Date/Time of Note DATE: 04/13/17 TIME: 09:45 Assessment/Plan VTE Prophylaxis VTE Prophylaxis Intervention: SCD's Lines/Catheters IV Catheter Type (from Nrsg): Saline Lock Assessment/Plan Assessment/Plan #1 chest pain: Rule out ACS. Will trend troponins. EKG: Ventricular paced rhythm rate 106. Occasional PVCs. Previous stress test again showed: small to moderate-sized nonreversible perfusion defect in the apical and inferior bang. With a stress EF of 47%. Will provide nitro patch for pain/morphine. We will continue patient's home medications. s/p Cardiology consult, waiting for decision about stress test vs Cardiac cath #2 Mechanical fall: CAT scan of the head does not show any acute abnormality. CT scan of the C-spine does not show any acute fractures. Will get PT OT evaluation. Ambulation with walker. Fall precautions. #3 ocular myasthenia gravis: Patient does have abnormal eye movements, however he also does display an irregular lip movement behavior when he speaking and patient also reports that he also feels weak a lot of times. Patient was seen by neurology during his last visit and he was continued on Mestinon 30 mg p.o. every 4 hours. However this is not on his med reconciliation. Will continue his Mestinon p.o. every 4 hours. #4 atrial fibrillation: Currently patient is ventricular paced rhythm. Will continue Xarelto. #5 hypertension: Continue patient home medications. #6 social condition: no hospice on discharge, pt willgo back to assisted living facility . Patient does state that his CODE STATUS is a DNR. #7 DVT and GI prophylaxis: SCDs, acid kimberly Exam/Review of Systems Vital Signs Vitals Vital Signs Date Time Temp Pulse Resp B/P Pulse Ox O2 Delivery O2 Flow Rate FiO2 04/13/17 08:53 60 04/13/17 07:54 97.9 17 100/57 92 04/12/17 18:25 Room Air 04/12/17 09:05 2.0 Intake and Output 04/12/17 04/12/17 04/13/17 15:00 23:00 07:00 Intake Total 545 ml Balance 545 ml Exam Constitutional: alert Psych: no complaints Head: normocephalic Eyes: nl conjunctiva ENMT: nl external ears & nose Neck: non-tender, supple Respiratory: clear to auscultation, normal air movement Cardiovascular: nl pulses, regular rate and rhythm Gastrointestinal: non-tender, soft Musculoskeletal: nl extremities to inspection Neurological: BOX PERSON II-XII intact, nl mental status, nl speech, nl strength Results Result Diagram: 04/13/17 0704/13/17 07 Results 24 hrs Laboratory Tests Test 04/12/17 09:46 04/13/17 07:01 Creatine Kinase 44 Creatine Kinase Index 2.9 Creatinine Kinase MB (Mass) 1.28 Troponin I 0.023 White Blood Count 6.6 Red Blood Count 4.96 Hemoglobin 14.8 Hematocrit 46.1 Mean Corpuscular Volume 92.9 Mean Corpuscular Hemoglobin 29.8 Mean Corpuscular Hemoglobin Concent 32.1 Red Cell Distribution Width 13.2 Platelet Count 183 Mean Platelet Volume 8.9 Neutrophils % 66.1 Lymphocytes % 21.0 Monocytes % 9.3 Eosinophils % 3.0 Basophils % 0.3 Nucleated Red Blood Cells % 0.0 Neutrophils # 4.3 Lymphocytes # 1.4 Monocytes # 0.6 Eosinophils # 0.2 Basophils # 0.0 Nucleated Red Blood Cells # 0.0 Sodium Level 144 Potassium Level 4.1 Chloride Level 107 Carbon Dioxide Level 29 Anion Gap 12 Blood Urea Nitrogen 26 H Creatinine 1.06 Glucose Level 82 # Calcium Level 8.6 Phosphorus Level 4.0 Magnesium Level 1.8 Albumin 3.5 Medications Medications Current Medications Ondansetron HCl (Zofran Inj) 4 mg Q4 PRN IV NAUSEA AND/OR VOMITING; Start at 22:30 Morphine Sulfate (morphine) 4 mg Q4 PRN IV PAIN LEVEL 4-7 Last administered on 04/13/17 08:48; Admin Dose 4 MG; Start 04/11/17 at 22:30 Ondansetron HCl (Zofran Inj) 4 mg Q6H PRN IV NAUSEA AND/OR VOMITING; Start at 23:30 Acetaminophen (Tylenol Tab) 650 mg Q6H PRN PO PAIN LEVEL 1-3 OR FEVER; Start 04/11/17 at 23:30 Pyridostigmine [place] (Mestinon) 30 mg Q4 PO Last administered on 04/13/17 08:46; Admin Dose 30 MG; Start 04/12/17 at 01:00 Amlodipine Besylate (Norvasc) 10 mg DAILY PO Last administered on 04/12/17 09 :06; Admin Dose 10 MG; Start 04/12/17 at 09:00 Duloxetine HCl (Cymbalta) 40 mg DAILY PO Last administered on 04/13/17 08:45 ; Admin Dose 40 MG; Start 04/12/17 at 09:00 Lisinopril (Zestril) 40 mg DAILY PO Last administered on 04/12/17 09:07; Admin Dose 40 MG; Start 04/12/17 at 09:00 Pantoprazole (Protonix Tab) 40 mg DAILY@06 PO Last administered on 04/13/17 05:46; Admin Dose 40 MG; Start 04/12/17 at 06:00 Trazodone HCl (Desyrel) 50 mg QHS PO Last administered on 04/12/17 21:00; Admin Dose 50 MG; Start 04/12/17 at 21:00 Alprazolam (Xanax) 2 mg Q8H PRN PO ANXIETY; Start 04/11/17 at 23:30 Carvedilol (Coreg) 3.125 mg BID PO Last administered on 04/13/17 08:46; Admin Dose 3.125 MG; Start 04/12/17 at 21:00 TONI CHAO MD Apr 13, 2017 09:48
--- NOTE | 2017-04-13 09:50 | PDOCDIS ---
Discharge Instructions CONDITION Patient Condition: Good HOME CARE INSTRUCTIONS: Special Diet: Cardiac diet ACTIVITY: Activity Restrictions: Slowly Increase Activity Rest between Activity Avoid heavy lifting Avoid Heavy Housework FOLLOW UP/APPOINTMENTS Follow-up Plan follow up with his own PMD in 1-2 week after discharge Follow up with Cardiology in 1-2 week after discharge TONI CHAO MD Apr 13, 2017 09:50
[2017-04-13] MEDS ORDERED: RIVA20TA PO (10:05)
[2017-04-13] MEDS ORDERED: CARV3.1260 PO (10:05)
--- NOTE | 2017-04-13 11:40 | CONS ---
Date/Time of Note Date/Time of Note DATE: 04/13/17 TIME: 11:34 Assessment/Plan Assessment/Plan Chief Complaint/Hosp Course IMp: 1.Chest pain-Neg trop x 3. reproducible on palpation of chest. Negative stress for ischemia 01/2017 2.HTN 3.H/O PAF 4.PPM Recc: -Tele -Continue coreg/zestril/norvasc -Contineu xarelto -D/C planning with outpatient work-up Problems: Consultation Date/Type/Reason Admit Date/Time Apr 11, 2017 at 21:14 Initial Consult Date 04/11/2017 Type of Consultation: cardiology Reason for Consultation Chest pain Referring Provider: TONI CHAO MD Exam/Review of Systems Vital Signs Vitals Vital Signs Date Time Temp Pulse Resp B/P Pulse Ox O2 Delivery O2 Flow Rate FiO2 04/13/17 08:53 60 04/13/17 07:54 97.9 17 100/57 92 04/12/17 18:25 Room Air 04/12/17 09:05 2.0 Intake and Output 04/12/17 04/12/17 04/13/17 15:00 23:00 07:00 Intake Total 545 ml Balance 545 ml Exam Review of Systems: CONSTITUTIONAL: No fevers, chills. PULMONARY: No sob CARDIOVASCULAR: positive chest pain/palpitations GASTROINTESTINAL: No nausea/vomiting. GENITOURINARY: No hematuria/dysuria. MUSCULOSKELETAL: No myagias/arthalgias. PSYCHIATRIC: The patient denies depression. NEUROLOGIC: No weakness Constitutional: alert Psych: no complaints Head: normocephalic Neck: jvd (9 cm water), supple Respiratory: clear to auscultation Cardiovascular: regular rate and rhythm Gastrointestinal: non-tender, soft Musculoskeletal: muscle tone (normal) Extremities: edema (none) Neurological: other (No focal deficits) Results Result Diagram: 04/13/17 0701 04/13/17 07 Results 24 hrs Laboratory Tests Test 04/13/17 07:01 White Blood Count 6.6 Red Blood Count 4.96 Hemoglobin 14.8 Hematocrit 46.1 Mean Corpuscular Volume 92.9 Mean Corpuscular Hemoglobin 29.8 Mean Corpuscular Hemoglobin Concent 32.1 Red Cell Distribution Width 13.2 Platelet Count 183 Mean Platelet Volume 8.9 Neutrophils % 66.1 Lymphocytes % 21.0 Monocytes % 9.3 Eosinophils % 3.0 Basophils % 0.3 Nucleated Red Blood Cells % 0.0 Neutrophils # 4.3 Lymphocytes # 1.4 Monocytes # 0.6 Eosinophils # 0.2 Basophils # 0.0 Nucleated Red Blood Cells # 0.0 Sodium Level 144 Potassium Level 4.1 Chloride Level 107 Carbon Dioxide Level 29 Anion Gap 12 Blood Urea Nitrogen 26 H Creatinine 1.06 Glucose Level 82 # Calcium Level 8.6 Phosphorus Level 4.0 Magnesium Level 1.8 Albumin 3.5 Medications Medications Current Medications Ondansetron HCl (Zofran Inj) 4 mg Q4 PRN IV NAUSEA AND/OR VOMITING; Start at 22:30 Morphine Sulfate (morphine) 4 mg Q4 PRN IV PAIN LEVEL 4-7 Last administered on 04/13/17 08:48; Admin Dose 4 MG; Start 04/11/17 at 22:30 Ondansetron HCl (Zofran Inj) 4 mg Q6H PRN IV NAUSEA AND/OR VOMITING; Start at 23:30 Acetaminophen (Tylenol Tab) 650 mg Q6H PRN PO PAIN LEVEL 1-3 OR FEVER; Start 04/11/17 at 23:30 Pyridostigmine [place] (Mestinon) 30 mg Q4 PO Last administered on 04/13/17 08:46; Admin Dose 30 MG; Start 04/12/17 at 01:00 Amlodipine Besylate (Norvasc) 10 mg DAILY PO Last administered on 04/12/17 09 :06; Admin Dose 10 MG; Start 04/12/17 at 09:00 Duloxetine HCl (Cymbalta) 40 mg DAILY PO Last administered on 04/13/17 08:45 ; Admin Dose 40 MG; Start 04/12/17 at 09:00 Lisinopril (Zestril) 40 mg DAILY PO Last administered on 04/12/17 09:07; Admin Dose 40 MG; Start 04/12/17 at 09:00 Pantoprazole (Protonix Tab) 40 mg DAILY@06 PO Last administered on 04/13/17 05:46; Admin Dose 40 MG; Start 04/12/17 at 06:00 Trazodone HCl (Desyrel) 50 mg QHS PO Last administered on 04/12/17 21:00; Admin Dose 50 MG; Start 04/12/17 at 21:00 Alprazolam (Xanax) 2 mg Q8H PRN PO ANXIETY; Start 04/11/17 at 23:30 Carvedilol (Coreg) 3.125 mg BID PO Last administered on 04/13/17t 08:46; Admin Dose 3.125 MG; Start 04/12/17 at 21:00 ROSITA ANGUIANO Apr 13, 2017 11:40
--- NOTE | 2017-04-13 16:37 | DS ---
Date/Time of Note Date/Time of Note DATE: 04/13/17 TIME: 16:37 Discharge Summary Admission/Discharge Info Admit Date/Time Apr 11, 2017 at 21:14 Discharge Date/Time Mar Discharge Diagnosis 1. atypical chest pain 2/2 possible costochondritis, previous Stress test negative for reversible perfusion defect 2. H/o Chronic pain 3. S/p mechanical fall 4. H/o Ocual myesthenia gravis 5. atrial fibrillation 6. hypertension 7. Pacemaker Patient Condition: Good Consults Cardiology Consult Dr.james Vasquez Procedures None Hx of Present Illness 71-year-old male with a history of history of myasthenia gravis, chronic tremors , atrial fib on Xarelto, coronary artery disease status post PCI, hypertension, dyslipidemia and prostate CA status post prostatectomy, chemotherapy and radiation presents to the ED by rescue ambulance for evaluation of chest pain. Of note patient is a very poor historian. At approximately 3 PM on 04/11 patient had a mechanical trip and fall while walking with his walker and afterwards began complaining of severe, pressure-like, substernal chest pain that radiated to his left shoulder. Patient describes a feeling as if a "elephant is sitting on my chest". Mild shortness of breath shortness of breath and vomiting but denies nausea or diaphoresis. Patient received aspirin 162 mg and sublingual nitroglycerin 3 from paramedics with minimal relief. Denies abdominal pain or back pain. No headache, visual changes, focal weakness or numbness. Denies leg pain or swelling. No fevers or chills. Patient was admitted 02/05/2017 for similar symptoms. He ruled out for [facility]. Lexiscan study revealed a small to moderate nonreversible perfusion defect in the apical inferior bang. Hospital Course pt was admitted for atypical chest pain, he had a serial troponin and ekgs Negative, he previously had a Stress test showed non reversible perfusion defect. pt remained chest pain, his chest pain was reproducible. he gets discharged back to Assisted living facility with follow up with cardiology as outpatient. Home Meds Active Scripts Carvedilol* (Carvedilol*) 3.125 Mg Tablet, 3.125 MG PO BID, #60 TAB Prov:TONI CHAO MD 04/13/17 Rivaroxaban* (Xarelto*) 20 Mg Tablet, 20 MG PO WITH DINNER, #30 TAB Prov:TONI CHAO MD 04/13/17 Reported Medications Trazodone Hcl* (Trazodone Hcl*) 50 Mg Tablet, 50 MG PO QHS, #30 TAB 04/11/17 Duloxetine Hcl* (Duloxetine Hcl*) 20 Mg Capsule.dr, 40 MG PO DAILY, #30 CAP 04/11/17 Hydrocodone/Acetaminophen ([place] 5-325 Tablet) 1 Each Tablet, 1 EACH PO Q12H, TAB 04/11/17 Amlodipine Besylate* (Amlodipine Besylate*) 10 Mg Tablet, 10 MG PO DAILY, #30 TAB 02/05/17 Alprazolam (Alprazolam) 2 Mg Tab.rapdis, 2 MG PO Q8H Y for ANXIETY, TAB 02/05/17 Pantoprazole (Protonix) 40 Mg Tabec, 40 MG PO DAILY, TAB 02/05/17 Lisinopril* (Lisinopril*) 40 Mg Tablet, 40 MG PO DAILY, #30 TAB Hold for SBP <110 or HR <60 02/05/17 Discontinued Reported Medications Docusate Sodium (Stool Softener) 100 Mg Tablet, 100 MG PO BID Y for CONSTIPATION , TAB 02/05/17 Nitroglycerin* (Nitroglycerin* SL) 0.4 Mg Tab.subl, 0.4 MG SL Q5MIN Y for CHEST PAIN, BOTTLE 02/05/17 Carvedilol* (Carvedilol*) 12.5 Mg Tablet, 12.5 MG PO BID, #60 TAB 02/05/17 Zolpidem Tartrate* (Ambien*) 10 Mg Tablet, 10 MG PO QHS Y for INSOMNIA, TAB 02/05/17 Rivaroxaban* (Xarelto*) 20 Mg Tablet, 20 MG PO WITH DINNER, TAB 02/05/17 Aspirin* (Aspirin* Chew) 81 Mg Tab.chew, 81 MG PO DAILY, TAB.CHEW 02/05/17 Follow-up Plan follow up with his own PMD in 1-2 week after discharge Follow up with Cardiology in 1-2 week after discharge Primary Care Provider Not On Staff Doctor Time spent on discharge: > 30 minutes Pending Labs Laboratory Tests Test 04/13/17 07:01 White Blood Count 6.610^3/ul (4.8-10.8) Red Blood Count 4.9610^6/ul (4.70-6.10) Hemoglobin 14.8g/dl (14.0-18.0) Hematocrit 46.1% (42.0-52.0) Mean Corpuscular Volume 92.9fl (82.0-101.0) Mean Corpuscular Hemoglobin 29.8pg (29.0-33.0) Mean Corpuscular Hemoglobin Concent 32.1g/dl (32.0-37.0) Red Cell Distribution Width 13.2% (11.5-14.5) Platelet Count 48012^3/UL (140-415) Mean Platelet Volume 8.9fl (7.4-10.4) Neutrophils % 66.1% (39.0-77.0) Lymphocytes % 21.0% (15.0-51.0) Monocytes % 9.3% (0.0-11.0) Eosinophils % 3.0% (0.0-7.0) Basophils % 0.3% (0.0-2.0) Nucleated Red Blood Cells % 0.0/100WBC (0.0-0.0) Neutrophils # 4.310^3/ul (1.6-7.5) Lymphocytes # 1.410^3/ul (0.8-2.9) Monocytes # 0.610^3/ul (0.3-0.9) Eosinophils # 0.210^3/ul (0.0-0.5) Basophils # 0.010^3/ul (0.0-0.1) Nucleated Red Blood Cells # 0.010^3/ul (0.0-0.0) Sodium Level 144mmol/L (135-144) Potassium Level 4.1mmol/L (3.5-5.1) Chloride Level 107mmol/L (97-110) Carbon Dioxide Level 29mmol/L (21-31) Anion Gap 12 (8-16) Blood Urea Nitrogen 26mg/dl (7-20) Creatinine 1.06mg/dl (0.61-1.24) Glucose Level 82mg/dl (70-220) Calcium Level 8.6mg/dl (8.4-10.2) Phosphorus Level 4.0mg/dl (2.5-4.9) Magnesium Level 1.8mg/dl (1.7-2.5) Albumin 3.5g/dl (3.3-4.9) TONI CHAO MD Apr 13, 2017 16:37 TONI CHAO MD Apr 13, 2017 16:37
[2017-04-13] MEDS ORDERED: RIVAROXABAN 20 MG TABLET PO SCH (17:35)
== END 2017-04-13 16:10 | disposition home or self-care (01) ==
LOC: E/R 17:32 → INTOOBSV 21:14 → MS3 21:14 → TEL 04-13 03:09
PROVIDERS: ADMIT Family Medicine; ATTEND Family Medicine
DX: R07.89 Other chest pain (principal); I10 Essential (primary) hypertension; I48.0 Paroxysmal atrial fibrillation; I25.10 Atherosclerotic heart disease of native coronary artery without angina pectoris; Z95.5 Presence of coronary angioplasty implant and graft; Z88.5 Allergy status to narcotic agent; Z95.0 Presence of cardiac pacemaker; G70.00 Myasthenia gravis without (acute) exacerbation; Z85.46 Personal history of malignant neoplasm of prostate; F41.9 Anxiety disorder, unspecified; G89.4 Chronic pain syndrome
CPT/HCPCS: 36415; 70450; 71010; 72125; 80053; 80069; 82550; 82553; 83735; 84484; 85025; 85610; 85730; 93005; 96365; 96366; 96375; 99291; G0378; J2270; J2405; J7030; 99217